=== PATIENT | female | born 1955 | race Caucasian/White ===

== ENCOUNTER 2020-11-05 07:33 | Outpatient (REF) | payer OTHER, SELFPAY ==
[2020-11-05 11:45] LABS: Hematocrit 38.4 % (37-47); Hemoglobin 12.7 g/dl (12.0-16.0); Mean Corpuscular HGB Conc 33.1 g/dl (31.0-35.0); Mean Corpuscular Hemoglobin 29.8 pg (27.0-33.0); Mean Corpuscular Volume 90.1 fL (80-98); Mean Platelet Volume 10.4 fL (9.4-12.3); Platelet Count 326 X10*3/uL (160-400); Red Blood Count 4.26 X10*6/uL (4.20-5.50); White Blood Count 6.4 X10*3/uL (4.8-10.8)
[2020-11-05 12:02] LABS: Alanine Aminotransferase 16 U/L (0-31); Albumin Level 4.1 g/dL (3.5-5.0); Alkaline Phosphatase 75 U/L (39-117); Anion Gap 14 (12-20); Aspartate Amino Transferase 17 U/L (5-31); Blood Urea Nitrogen 17 mg/dL (9-16); Calcium 9.4 mg/dL (8.4-10.2); Carbon Dioxide 24 mmol/L (22-29); Chloride 108 mmol/L (96-108); Cholesterol 152 mg/dL; Estimated Glomerular Filt Rate 43; Glucose Fasting 102 mg/dL (60-99); HDL Cholesterol 37 mg/dL; LDL Cholesterol Calculated 85 mg/dl; Potassium 4.5 mmol/L (3.3-5.1); Sodium 141 mmol/L (135-145); Total Protein 6.8 g/dL (6.5-8.0); Triglycerides 151 mg/dL
[2020-11-05 12:23] LABS: Vitamin D 25-OH Total 44.1 ng/mL (>30)
== END 2020-11-05 07:34 | disposition home or self-care (01) ==
LOC: HO.MANLDS 07:33
PROVIDERS: PCP Internal Medicine; Visit Provider Physician Assistant
DX: E55.9 Vitamin D deficiency, unspecified (principal); I10 Essential (primary) hypertension; E78.1 Pure hyperglyceridemia
CPT/HCPCS: 36415; 80053; 80061; 82306; 85027

== ENCOUNTER 2021-11-10 07:59 | Outpatient (REF) | payer MEDICARE, OTHER, SELFPAY ==
[2021-11-10 11:39] LABS: Hematocrit 39.6 % (37.0-47.0); Hemoglobin 12.9 g/dl (12.0-16.0); Mean Corpuscular HGB Conc 32.6 g/dl (31.0-35.0); Mean Corpuscular Hemoglobin 29.5 pg (27.0-33.0); Mean Corpuscular Volume 90.4 fL (80.0-98.0); Mean Platelet Volume 10.2 fL (9.4-12.3); Platelet Count 322 X10*3/uL (160-400); Red Blood Count 4.38 X10*6/uL (4.20-5.50); Red Cell Distribution Width 11.8 % (11.0-16.0)
[2021-11-10 11:55] LABS: Alanine Aminotransferase 17 U/L (0-31); Albumin Level 4.1 g/dL (3.5-5.0); Alkaline Phosphatase 80 U/L (39-117); Anion Gap 17 (12-20); Aspartate Amino Transferase 15 U/L (5-31); Bilirubin Total 0.8 mg/dL (0.0-1.0); Blood Urea Nitrogen 22 mg/dL (9-16); Calcium 9.1 mg/dL (8.4-10.2); Carbon Dioxide 22 mmol/L (22-29); Chloride 107 mmol/L (96-108); Cholesterol 182 mg/dL; Estimated Glomerular Filt Rate 42; Glucose Fasting 99 mg/dL (60-99); HDL Cholesterol 39 mg/dL; LDL Cholesterol Calculated 105 mg/dl; Potassium 4.5 mmol/L (3.3-5.1); Sodium 141 mmol/L (135-145); Total Protein 6.9 g/dL (6.5-8.0); Triglycerides 191 mg/dL
== END 2021-11-10 08:00 | disposition home or self-care (01) ==
LOC: HO.MANLDS 07:59
PROVIDERS: Visit Provider Physician Assistant
DX: Z00.00 Encounter for general adult medical examination without abnormal findings (principal)
CPT/HCPCS: 36415; 80053; 80061; 85027

== ENCOUNTER 2022-12-08 08:43 | Outpatient (REF) | payer MEDICARE, OTHER, SELFPAY ==
[2022-12-08 13:26] LABS: MANUAL DIFF FLAG NO
[2022-12-08 13:42] LABS: Basophils Absolute Auto 0.1 X10*3/uL (0.0-0.2); Basophils Percent Auto 0.7 % (0-2); Eosinophils Absolute Auto 0.2 X10*3/uL (0.0-0.4); Eosinophils Percent Auto 3.2 % (0-4); Hematocrit 42.1 % (37.0-47.0); Hemoglobin 13.6 g/dl (12.0-16.0); Imm Gran Abs Auto 0.03 X10*3/uL (0.00-0.03); Imm Gran Pct Auto 0.4 % (0.0-0.4); Lymphocytes Absolute Auto 1.6 X10*3/uL (1.2-4.9); Lymphocytes Percent Auto 22.4 % (20-40); Mean Corpuscular HGB Conc 32.3 g/dl (31.0-35.0); Mean Corpuscular Hemoglobin 29.6 pg (27.0-33.0); Mean Corpuscular Volume 91.5 fL (80.0-98.0); Mean Platelet Volume 10.4 fL (9.4-12.3); Monocytes Absolute Auto 0.6 X10*3/uL (0.1-1.2); Monocytes Percent Auto 7.8 % (2-11); Neutrophils Absolute Auto 4.7 x10*3/uL (2.0-8.3); Neutrophils Percent Auto 65.5 % (45-73); Platelet Count 311 X10*3/uL (160-400); Red Cell Distribution Width 11.7 % (11.0-16.0); White Blood Count 7.2 X10*3/uL (4.8-10.8)
[2022-12-08 14:16] LABS: Alanine Aminotransferase 19 U/L (0-31); Albumin Level 4.2 g/dL (3.5-5.0); Alkaline Phosphatase 67 U/L (39-117); Anion Gap 12 (12-20); Aspartate Amino Transferase 16 U/L (5-31); Bilirubin Total 0.9 mg/dL (0.0-1.0); Blood Urea Nitrogen 22 mg/dL (9-16); Calcium 9.7 mg/dL (8.4-10.2); Carbon Dioxide 24 mmol/L (22-29); Chloride 108 mmol/L (96-108); Cholesterol 171 mg/dL (<200); Estimated Glomerular Filt Rate 51; Glucose Random 86 mg/dL (60-115); HDL Cholesterol 43 mg/dL (>40); LDL Cholesterol Calculated 96 mg/dL (<100); Potassium 4.3 mmol/L (3.3-5.1); Sodium 140 mmol/L (135-145); Triglycerides 160 mg/dL (<150)
== END 2022-12-08 08:44 | disposition home or self-care (01) ==
LOC: HO.MANLDS 08:43
PROVIDERS: Visit Provider Physician Assistant
DX: E78.1 Pure hyperglyceridemia (principal)
CPT/HCPCS: 36415; 80053; 80061; 85025

== ENCOUNTER 2024-11-27 09:44 | Outpatient (AMB) | payer MEDICARE, OTHER, SELFPAY ==
--- OUTSIDE RECORDS SUMMARY | 2024-11-27 10:50 | XMS_ITS | Encounter Summary ---
Author Organization [facility] Address [address] [facility] [address] [place] [address] Phone Care Team Providers Care Audio/Video Technician Name Role Phone Gilbert Reynoso DO Primary Care Provider [phone] Gilbert Reynoso DO Unavailable Gilbert Reynoso DO Unavailable Jesus Alberto Reyes MD Unavailable Encounter Details Date Type Department Care Team (Late st Contact Info) Description 01/06/2021 Procedure Pass [address] [address] Social History Tobacco Use Types Packs/Day Years Used Date Smoking Tobacco: Never Assessed Comments No Sex and Gender Information Value Date Recorded Sex Assigned at Female 08/20/2021 9:53 PM EDT Legal Sex Female 9:54 PM EDT Gender Identity Female 08/20/2021 9:53 PM EDT Sexual Orientation Lesbian or Rodriguez 08/20/2021 9: 53 PM EDT documented as of this encounter Plan of Treatment Not on file documented as of this encounter Visit Diagnoses Not on filedocumented in this encounter Care Teams Audio/Video Technician Relationship Specialty Start Date End Date Gilbert Reynoso DO PCP - General 01/25/17 Gilbert Reynoso DO [address] [place] [address] [place] [address] Insurance Assigned Provider 08/15/1903/11 Gilbert Reynoso DO [address] [facility] [place] [address] Insurance Assigned Provider 05/17/2102/09 Jesus Alberto Reyes MD 15 [facility] [address] [place] [address] [email or web address] Nephrology 05/02/24 documented as of this encounter Additional Source Comments The information contained in this document represents components of the legal health record. It is not the complete legal health record.[facility]
--- OUTSIDE RECORDS SUMMARY | 2024-11-27 10:50 | XMS_ITS | Encounter Summary ---
Author Organization [facility], Address [address] [place] [address] Phone Care Team Providers Care Home Based Assistant Name Role Phone Gilbert Reynoso DO Primary Care Provider [phone] Encounter Details Date Type Department Care Team (Late Contact Info) Description 01/04/2020 Orders Only [facility] [address] [facility] 3 [place] [address] Melissa Keller MD Chronic kidney disease stage 3 (HCC) Social History Tobacco Use Types Packs/Day Years Used Date Smoking Tobacco: Never Assessed Comments Unknown Sex and Gender Information Value Date Recorded Sex Assigned at Not on file Legal Sex Female 4:39 PM EST Gender Identity Not on file Sexual Orientation Not on file Occupation Industry Job Start Date Job End Date Retired Nurse Not on file Not on file Not on file documented as of this encounter Plan of Treatment Upcoming Encounters Date Type Department Care Team (Late Contact Info) Description 06/27/2025 10:00 AM EDT Office Visit [facility] - [address] [place] [address] Jesus Alberto Reyes MD [address] [facility] [place] [phone] documented as of this encounter Visit Diagnoses Diagnosis Chronic kidney disease stage 3 (HCC) documented in this encounter Care Teams Home Based Assistant Relationship Specialty Start Date End Date Gilbert Reynoso DO [address] [address] PCP - General Internal Medicine 06/13/19 documented as of this encounter
== END 2024-11-27 10:46 | disposition home or self-care (01) ==
LOC: HO.HMGAL 09:44
PROVIDERS: PCP Internal Medicine; Visit Provider Registered Nurse Emergency
DX: J30.89 Other allergic rhinitis (principal)
CPT/HCPCS: 95117; 95165

== ENCOUNTER 2024-12-24 11:00 | Outpatient (AMB) | payer MEDICARE, OTHER, SELFPAY | END 2024-12-24 11:22 | disposition home or self-care (01) | LOC: HO.HMGAL 11:00 | PROVIDERS: PCP Internal Medicine; Visit Provider Registered Nurse Emergency | DX: J30.89 Other allergic rhinitis (principal) | CPT/HCPCS: 95117; 95165 ==

== ENCOUNTER 2025-01-23 10:12 | Outpatient (AMB) | payer MEDICARE, OTHER, SELFPAY ==
--- OUTSIDE RECORDS SUMMARY | 2025-01-23 12:03 | XMS_ITS | Encounter Summary ---
Author Organization [facility] Address [address] [facility] [address] [place] [address] Phone Care Team Providers Care Safety Compliance Specialist Name Role Phone Gilbert Reynoso DO Primary Care Provider [phone] Gilbert Reynoso DO Unavailable Gilbert Reynoso DO Unavailable Jesus Alberto Reyes MD Unavailable Encounter Details Date Type Department Care Team (Late st Contact Info) Description 01/16/2020 Procedure Pass [address] [address] Social History Tobacco Use Types Packs/Day Years [...] on filedocumented in this encounter Care Teams Safety Compliance Specialist Relationship Specialty Start Date End Date Gilbert Reynoso DO PCP - General 01/25/17 Gilbert Reynoso DO [address] [place] [address] [place] [address] Insurance Assigned Provider 08/15/1903/11 Gilbert Reynoso DO 179 [facility] [address] Insurance Assigned Provider 05/17/2102/09 Jesus Alberto Reyes MD [address] [address] [email or web address] Nephrology 05/02/24 documented as of this encounter Additional Source Comments The information contained in this document represents components of the legal health record. It is not the complete legal health record.[facility]
--- OUTSIDE RECORDS SUMMARY | 2025-01-23 12:03 | XMS_ITS | Encounter Summary ---
Author Organization [facility] Address [address] [facility] [address] [place] [address] Phone Care Team Providers Care Vp Legal Affairs Name Role Phone Angeles, Gilbert Meade DO Primary Care Provider [phone] Bigda, Gilbert A DO Unavailable Bigda, Gilbert A DO Unavailable Jesus Alberto Reyes MD Unavailable Encounter Details Date Type Department Care Team (Latest Contact Info) Description 05/22/2019 Transcribe Orders Virtual Department 30 [place] [address] Rosemarie Oneil PA-C [address] [place] [place] [address] Abnormal results of kidney function studies (Primary Dx) Social History Tobacco Use Types Packs/Day Years [...] on file documented as of this encounter Results * US Kidneys (06/07/2019 9:09 AM EST) Anatomical Region Laterality Modality Abdomen, Kidney Ultrasound 06/07/2019 12:5 8 PM EST Impressions 06/07/2019 1:00 PM EST Normal renal ultrasound. POS - [id number] Narrative 06/07/2019 1:00 PM EST EXAM: US KIDNEYS HISTORY: Abnormal renal laboratory values. TECHNIQUE: Grayscale and color Doppler ultrasound imaging of the kidneys. COMPARISON: None. FINDINGS: RIGHT KIDNEY: Normal renal size. Measures 10.0 x 4.6 cm. Cortical echogenicity is normal. Normal cortical thickness. No hydronephrosis. No shadowing calculi. LEFT KIDNEY: Normal renal size. Measures 10.7 x 4.2 cm. Cortical echogenicity is normal. Normal cortical thickness. No hydronephrosis. No shadowing calculi. Procedure Note Lillian Pereira MD - 06/07/2019 EXAM: US KIDNEYS HISTORY: Abnormal renal laboratory values. TECHNIQUE: Grayscale and color Doppler ultrasound imaging of thekidneys. COMPARISON: None. FINDINGS: RIGHT KIDNEY: Normal renal size. Measures 10.0 x 4.6 cm. Corticalechogenicity is normal. Normal cortical thickness. No hydronephrosis. Noshadowing calculi. LEFT KIDNEY: Normal renal size. Measures 10.7 x 4.2 cm. Corticalechogenicity is normal. Normal cortical thickness. No hydronephrosis. Noshadowing calculi. IMPRESSION: Normal renal ultrasound. POS - [id number] July Clarice SARGENT IM US RENAL Final Result documented in this encounter Visit Diagnoses Diagnosis Abnormal results of kidney function studies- Primary Nonspecific abnormal results of kidney function study Abnormal results of kidney function studies Nonspecific abnormal results of kidney function study documented in this encounter Care Teams Vp Legal Affairs Relationship Specialty Start Date End Date Gilbert Reynoso DO PCP - General 01/25/17 Gilbert Reynoso DO [address] [place] [address] Insurance Assigned Provider 08/15/1903/11 Gilbert Reynoso DO 179 [facility] [place] [address] Insurance Assigned Provider 05/17/2102/09 Jesus Alberto Reyes MD [address] [address] [email or web address] Nephrology 05/02/24 documented as of this encounter Additional Source Comments The information contained in this document represents components of the legal health record. It is not the complete legal health record.[facility]
--- OUTSIDE RECORDS SUMMARY | 2025-01-23 12:03 | XMS_ITS | Encounter Summary ---
Author Organization [facility] Address [address] [facility] [address] [place] [address] Phone Care Team Providers Care Cdl Company Flatbed Driver Name Role Phone Gilbert Reynoso DO Primary Care Provider [phone] Gilbert Reynoso DO Unavailable Gilbert Reynoso DO Unavailable Jesus Alberto Reyes MD Unavailable Encounter Details Date Type Department Care Team (Late st Contact Info) Description 01/16/2020 Ancillary Orders Virtual Department 30 [place] [address] Gilbert Reynoso DO 179 [facility] [place] [address] Breast screening Social History Tobacco Use Types Packs/Day Years [...] documented as of this encounter Results * BI MAMMOGRAM SCREENING WITH TOMOSYNTHESIS WITH CAD (BILATERAL) (03/18/2020 8:20 AM EST) Anatomical Region Laterality Modality Breast Left, Breast Right, Breast Bilateral Bila teral Mammography 03/18/2020 9:03 AM EST Impressions 03/18/2020 9:07 AM EST No mammographic signs of malignancy. Annual screening is recommended. BI-RADS CATEGORY: 2 - Benign finding. DENSITY: The breast tissue is heterogeneously dense, which could obscure a lesion on mammography. Narrative 03/18/2020 9:07 AM EST Bilateral mammography is performed in conjunction with computed aided detection. 3-D tomography along with 2-D C view imaging was also performed. Comparison made to previous dated as far back as 02/19/2014 and as recent as 03/07/2019. No suspicious masses, areas of architectural distortion or suspicious microcalcifications. 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 Procedure Note Otoniel Fajardo MD - 03/18/2020 Bilateral mammography is performed in conjunction with computed aideddetection. 3-D tomography along with 2-D C view imaging was alsoperformed. Comparison made to previous dated as far back as 02/19/2014 andas recent as 03/07/2019. No suspicious masses, areas of architectural distortion or suspiciousmicrocalcifications. Stable coarse calcification with benigncharacteristics in the posterior upper outer right breast, probably adegenerating fibroadenoma. IMPRESSION: No mammographic signs of malignancy. Annual screening is recommended. BI-RADS CATEGORY: 2 - Benign finding. DENSITY: The breast tissue is heterogeneously dense, which could obscurea lesion on mammography. Gilbert Reynoso DO IMG MG EXAMS Final Result documented in this encounter Visit Diagnoses Diagnosis Breast screening Breast screening, unspecified Breast screening Breast screening, unspecified documented in this encounter Care Teams Cdl Company Flatbed Driver Relationship Specialty Start Date End Date Gilbert Reynoso DO PCP - General 01/25/17 Gilbert Reynoso DO [address] [place] [address] Insurance Assigned Provider 08/15/1903/11 Gilbert Reynoso DO [address] [facility] [address] [place] [address] Insurance Assigned Provider 05/17/2102/09 Jesus Alberto Reyes MD 15 [facility] 303 [place] [address] [email or web address] Nephrology 05/02/24 documented as of this encounter Additional Source Comments The information contained in this document represents components of the legal health record. It is not the complete legal health record.[facility]
--- OUTSIDE RECORDS SUMMARY | 2025-01-23 12:03 | XMS_ITS | Encounter Summary ---
Author Organization [facility] Address [address] [facility] [address] [place] [address] Phone Care Team Providers Care First Helper Name Role Phone Gilbert Reynoso DO Primary Care Provider [phone] Gilbert Reynoso DO Unavailable Jesus Alberto Reyes MD Unavailable Encounter Details Date Type Department Care Team (Late st Contact Info) Description 01/28/2022 Procedure Pass [facility], [address] [address] Social History Tobacco Use Types Packs/Day Years Used Date Smoking Tobacco: Never Alcohol Use Standard Drinks/Week Comments Not Currently 0 (1 standard drink = 0.6 oz pur e alcohol) Comments No Sex and Gender Information Value [...] on filedocumented in this encounter Care Teams First Helper Relationship Specialty Start Date End Date Gilbert Reynoso DO PCP - General 01/25/17 Gilbert Reynoso DO [address] [place] [address] [place] [address] [email or web address] Insurance Assigned Provider 05/17/2102/09 Jesus Alberto Reyes MD [address] [address] [email or web address] Nephrology 05/02/24 documented as of this encounter Additional Source Comments The information contained in this document represents components of the legal health record. It is not the complete legal health record.[facility]
--- OUTSIDE RECORDS SUMMARY | 2025-01-23 12:03 | XMS_ITS | Encounter Summary ---
Author Organization [facility] Address [address] [facility] [address] [place] [address] Phone Care Team Providers Care Legal Librarian Name Role Phone Gilbert Reynoso DO Primary Care Provider [phone] Gilbert Reynoso DO Unavailable Jesus Alberto Reyes MD Unavailable Encounter Details Date Type Department Care Team (Late st Contact Info) Description 12/30/2022 Procedure Pass [facility], [facility] 30 [place] [address] Social History Tobacco Use Types Packs/Day Years Used Date Smoking Tobacco: Never Alcohol Use Standard Drinks/Week Comments Not Currently 0 (1 standard drink = 0.6 oz pur e alcohol) Education Answer Date Recorded Are you interested in more education? Not on ezekiel e 08/05/2022 Are you concerned about learning? Not on file 08/05/2022 No 08/05/2022 No 08/05/2022 Digital Access Answer Date Recorded No 09/04/2022 No 09/04/2022 Reliable internet access at home? Not on file 09/04/2022 Device with a working camera? Not on file Comments No Sex and Gender Information Value [...] on filedocumented in this encounter Care Teams Legal Librarian Relationship Specialty Start Date End Date Gilbert Reynoso DO [email or web address] PCP - General 01/25/17 Gilbert Reynoso DO [address] [place] [address] [email or web address] Insurance Assigned Provider 05/17/2102/09 Jesus Alberto Reyes MD 15 [facility] 303 [place] [address] [email or web address] Nephrology 05/02/24 documented as of this encounter Additional Source Comments The information contained in this document represents components of the legal health record. It is not the complete legal health record.[facility]
--- OUTSIDE RECORDS SUMMARY | 2025-01-23 12:03 | XMS_ITS | Encounter Summary ---
Author Organization [facility] Address [address] [facility] [address] [place] [address] Phone Care Team Providers Care Emergency Dispatcher Name Role Phone Gilbert Reynoso DO Primary Care Provider [phone] Gilbert Reynoso DO Unavailable Jesus Alberto Reyes MD Unavailable Encounter Details Date Type Department Care Team (Late st Contact Info) Description 01/28/2022 Transcribe Orders Virtual Department [address] [place] [address] Gilbert Reynoso DO 179 [facility] [address] [place] [address] [email or web address] Breast screening (Primary Dx) Social History Tobacco Use Types [...] MAMMOGRAM SCREENING WITH TOMOSYNTHESIS WITH CAD (BILATERAL) (03/24/2022 8:34 AM EST) Anatomical Region Laterality Modality Breast Left, Breast Right, Breast Bilateral Bila teral Mammography 03/26/2022 4:49 PM EST Impressions 03/26/2022 4:52 PM EST BILATERAL BREASTS: Benign, no evidence of malignancy. Recommend bilateral annual screening mammography in 12 months. Bi-RADS: BI-RADS CATEGORY: 2 - Benign finding. DENSITY: The breast tissue is heterogeneously dense, which could obscure a lesion on mammography. RIGHT RECOMMENDATION DUE DATE: 12 Months Recommendation: Right Mammography Screening LEFT RECOMMENDATION DUE DATE: 12 Months Recommendation: Left Mammography Screening Narrative 03/26/2022 4:52 PM EST STUDY: Bilateral screening mammography with tomosynthesis and CAD TECHNIQUE: Bilateral full-field digital screening mammography is obtained and read in conjunction with computer-aided detection. Tomosynthesis as well as 2-D C view imaging were obtained. COMPARISON: Comparison made to multiple prior studies dating back to February 2015. BREAST COMPOSITION: The breast tissue is heterogeneously dense, which may obscure small masses. BILATERAL BREASTS: No new masses, suspicious calcifications or other abnormalities are seen. No significant interval change. Gilbert Reynoso DO IMG MG EXAMS Final Result documented in this encounter Visit Diagnoses Diagnosis Breast screening- Primary Breast screening, unspecified Breast screening Breast screening, unspecified documented in this encounter Care Teams Emergency Dispatcher Relationship Specialty Start Date End Date Gilbert Reynoso DO [email or web address] PCP - General 01/25/17 Gilbert Reynoso DO 179 [place] [address] [email or web address] Insurance Assigned Provider 05/17/2102/09 Jesus Alberto Reyes MD [address] [address] [email or web address] Nephrology 05/02/24 documented as of this encounter Additional Source Comments The information contained in this document represents components of the legal health record. It is not the complete legal health record.[facility]
--- OUTSIDE RECORDS SUMMARY | 2025-01-23 12:03 | XMS_ITS | Encounter Summary ---
Author Organization [facility] Address [address] [facility] [address] [place] [address] Phone Care Team Providers Care Contract Clerk Name Role Phone Gilbert Reynoso DO Primary Care Provider [phone] Jesus Alberto Reyes MD Unavailable Encounter Details Date Type Department Care Team (Late st Contact Info) Description 05/08/2024 Procedure Pass [facility] Admitting Dept Virtual Department 30 [place] [address] Social History Tobacco Use Types Packs/Day Years Used Date Smoking Tobacco: Never Smokeless Tobacco: Never Alcohol Use Standard Drinks/Week Comments Not Currently 0 (1 standard drink = 0.6 oz pur e alcohol) 3 weekly Education Answer Date Recorded Are you interested in more education? Not on ezekiel e 08/05/2022 Are you concerned about learning? Not on file 08/05/2022 No 08/05/2022 No 08/05/2022 Digital Access Answer Date Recorded No 09/04/2022 No 09/04/2022 Reliable internet access at home? Not on file 09/04/2022 Device with a working camera? Not on file Intimate Partner Violence Answer Date R ecorded Are you denied basic needs s uch as food, clothing, or medical care? No 05/08/2024 In the past 12 months have y ou been in a relationship with a person who hurts, threatens, or tries to control you? No 05/08/2024 Are you denied basic needs s uch as food, clothing, or medical care? No 05/08/2024 In the past 12 months have y ou been in a relationship with a person who hurts, threatens, or tries to control you? No 05/08/2024 Comments No Sex and Gender Information Value [...] on filedocumented in this encounter Care Teams Contract Clerk Relationship Specialty Start Date End Date Gilbert Reynoso DO [email or web address] PCP - General 01/25/17 Jesus Alberto Reyes MD [address] [address] Nephrology 05/02/24 documented as of this encounter Additional Source Comments The information contained in this document represents components of the legal health record. It is not the complete legal health record.[facility]
--- OUTSIDE RECORDS SUMMARY | 2025-01-23 12:03 | XMS_ITS | Encounter Summary ---
Author Organization [facility] Address [address] [facility] [address] [place] [address] Phone Care Team Providers Care Skin Diving Teacher Name Role Phone Gilbert Reynoso DO Primary Care Provider [phone] Gilbert Reynoso DO Unavailable Gilbert Reynoso DO Unavailable Jesus Alberto Reyes MD Unavailable Encounter Details Date Type Department Care Team (Late st Contact Info) Description 01/06/2021 Procedure Pass [address] [address] Social History Tobacco Use Types Packs/Day Years [...] on filedocumented in this encounter Care Teams Skin Diving Teacher Relationship Specialty Start Date End Date Gilbert Reynoso DO PCP - General 01/25/17 Gilbert Reynoso DO [address] [place] [address] [place] [address] Insurance Assigned Provider 08/15/1903/11 Gilbert Reynoso DO 179 [place] [address] Insurance Assigned Provider 05/17/2102/09 Jesus Alberto Reyes MD 15 [facility] 303 [place] [address] [email or web address] Nephrology 05/02/24 documented as of this encounter Additional Source Comments The information contained in this document represents components of the legal health record. It is not the complete legal health record.[facility]
--- OUTSIDE RECORDS SUMMARY | 2025-01-23 12:05 | XMS_ITS | Encounter Summary ---
Author Organization [facility] Address [address] [place] [address] Phone Care Team Providers Care Sales Stock Associate Name Role Phone Gilbert Reynoso DO Primary Care Provider [phone] Encounter Details Date Type Department Care Team (Late Contact Info) Description 07/04/2020 Orders Only [facility] [address] [facility] 3 [place] [address] Melissa Keller MD Chronic kidney disease stage 3 Social History Tobacco Use Types Packs/Day Years [...] Visit [facility] [address] [place] [address] Jesus Alberto Reyes MD [address] [place] [address] [place] [phone] documented as of this encounter Visit Diagnoses Diagnosis Chronic kidney disease stage 3 (HCC) documented in this encounter Care Teams Sales Stock Associate Relationship Specialty Start Date End Date Gilbert Reynoso DO [address] [place] [address],[place] [address] PCP - General Internal Medicine 06/13/19 documented as of this encounter
--- OUTSIDE RECORDS SUMMARY | 2025-01-23 12:05 | XMS_ITS | Encounter Summary ---
Author Organization [facility] Address [address] [facility] [address] [place] [address] Phone Care Team Providers Care Factory Maintenance Manager Name Role Phone Gilbert Reynoso DO Primary Care Provider [phone] Gilbert Reynoso DO Unavailable Gilbert Reynoso DO Unavailable Jesus Alberto Reyes MD Unavailable Encounter Details Date Type Department Care Team (Late st Contact Info) Description 12/08/2017 Ancillary Orders Virtual Department [address] [place] [address] Gilbert Reynoso DO [address] [facility] [place] [address] Breast screening Social History Tobacco Use Types [...] MAMMOGRAM SCREENING WITH TOMOSYNTHESIS WITH CAD (BILATERAL) (03/06/2018 8:42 AM EST) Anatomical Region Laterality Modality Breast Left, Breast Right, Breast Bilateral Bila teral Mammography 03/06/2018 2:20 PM EST Impressions 03/06/2018 2:23 PM EST Stable appearance relative to prior imaging. No findings suggestive of malignancy are seen. BI-RADS CATEGORY: 2 - Benign finding. DENSITY: The breast tissue is heterogeneously dense, an appearance which lowers the sensitivity of mammography. POS - [id number] Narrative 03/06/2018 2:23 PM EST Full-field digital mammography is obtained with computer-aided detection. Comparison with prior imaging from February 23, 2017 is made with older imaging dating back as far as February 08, 2012 also reviewed. There is heterogeneous fibroglandular density evident in the breasts. In addition to 2-D C view imaging, tomosynthesis images are obtained in two projections of each breast. There are macrocalcifications in the right breast.. No dominant soft tissue mass of concern, suspicious cluster of calcifications, significant interval skin changes, or architectural distortion is identified. Procedure Note Pardeep Alvarez MD - 03/06/2018 Full-field digital mammography is obtained with computer-aided detection.Comparison with prior imaging from February 23, 2017 is made with olderimaging dating back as far as February 08, 2012 also reviewed. There is heterogeneous fibroglandular density evident in the breasts. Inaddition to 2-D C view imaging, tomosynthesis images are obtained in twoprojections of each breast. There are macrocalcifications in the right breast.. No dominant softtissue mass of concern, suspicious cluster of calcifications, significantinterval skin changes, or architectural distortion is identified. IMPRESSION: Stable appearance relative to prior imaging. No findings suggestive ofmalignancy are seen. BI-RADS CATEGORY: 2 - Benign finding. DENSITY: The breast tissue is heterogeneously dense, an appearance whichlowers the sensitivity of mammography. POS - [id number] us Gilbert Reynoso DO IMG MG EXAMS Final Result documented in this encounter Visit Diagnoses Diagnosis Breast screening Breast screening, unspecified Breast screening Breast screening, unspecified documented in this encounter Care Teams Factory Maintenance Manager Relationship Specialty Start Date End Date Gilbert Reynoso DO PCP - General 01/25/17 Gilbert ReynosoDO [address] [place] [address] Insurance Assigned Provider 08/15/1903/11 Denisenell Gilbert MeadeDO [address] [place] [address] Insurance Assigned Provider 05/17/2102/09 Jesus Alberto Reyes MD [address] [address] Nephrology 05/02/24 documented as of this encounter Additional Source Comments The information contained in this document represents components of the legal health record. It is not the complete legal health record.[facility]
--- OUTSIDE RECORDS SUMMARY | 2025-01-23 12:05 | XMS_ITS | Encounter Summary ---
Author Organization [facility] Address [address] [facility] [address] [place] [address] Phone Care Team Providers Care Geothermal Field Technician Name Role Phone Gilbert Reynoso DO Primary Care Provider [phone] Gilbert Reynoso DO Unavailable Gilbert Reynoso DO Unavailable Jesus Alberto Reyes MD Unavailable Encounter Details Date Type Department Care Team (Late st Contact Info) Description 01/29/2017 Ancillary Orders [facility], [facility] [address] [place] [address] Gilbert Reynoso DO [address] [facility] [place] [address] [place] [address] [email or web address] Visit for screening mammogram Social History Tobacco Use Types Packs/Day Years [...] MAMMOGRAM SCREENING WITH TOMOSYNTHESIS WITH CAD (BILATERAL) (02/23/2017 9:52 AM EST) Anatomical Region Laterality Modality Breast Left, Breast Right, Breast Bilateral Bila teral Mammography 02/23/2017 5:02 PM EST Impressions 02/23/2017 5:09 PM EST No mammographic signs of malignancy. Annual screening is recommended. BI-RADS CATEGORY: 1 - Negative. DENSITY: The breast tissue is heterogeneously dense, an appearance which lowers the sensitivity of mammography. POS - [id number] Narrative 02/23/2017 5:09 PM EST Bilateral mammography is performed in conjunction with computed aided detection. 3-D tomography along with 2-D C view imaging was also performed. Comparison made to previous dated as far back as 02/02/2011 and is recent as 02/23/2016. Breasts are composed of heterogeneously dense fibroglandular tissue somewhat limiting the sensitivity of mammography. No suspicious masses, areas of architectural distortion or microcalcifications. Procedure Note Otoniel De Luna MD - 02/23/2017 Bilateral mammography is performed in conjunction with computed aideddetection. 3-D tomography along with 2-D C view imaging was alsoperformed. Comparison made to previous dated as far back as 02/02/2011 andis recent as 02/23/2016. Breasts are composed of heterogeneously dense fibroglandular tissuesomewhat limiting the sensitivity of mammography. No suspicious masses, areas of architectural distortion ormicrocalcifications. IMPRESSION: No mammographic signs of malignancy. Annual screening is recommended. BI-RADS CATEGORY: 1 - Negative. DENSITY: The breast tissue is heterogeneously dense, an appearance whichlowers the sensitivity of mammography. POS - [id number] Gilbert Reynoso DO IMG MG EXAMS Final Result documented in this encounter Visit Diagnoses Diagnosis Visit for screening mammogram Visit for screening mammogram documented in this encounter Care Teams Geothermal Field Technician Relationship Specialty Start Date End Date Gilbert Reynoso DO PCP - General 01/25/17 Gilbert Reynoso DO [address] [facility] [place] [address] Insurance Assigned Provider 08/15/1903/11 Gilbert Reynoso DO [address] [place] [address] Insurance Assigned Provider 05/17/2102/09 Jesus Alberto Reyes MD [address] [address] [email or web address] Nephrology 05/02/24 documented as of this encounter Additional Source Comments The information contained in this document represents components of the legal health record. It is not the complete legal health record.[facility]
--- OUTSIDE RECORDS SUMMARY | 2025-01-23 12:05 | XMS_ITS | Encounter Summary ---
Author Organization [facility], Address [address] [place] [address] Phone Care Team Providers Care Rounding And Backing Machine Operator Name Role Phone Gilbert Reynoso DO Primary Care Provider [phone] Encounter Details Date Type Department Care Team (Late st Contact Info) Description 06/21/2022 Documentation Only [facility] [address] [place] [address] Melissa Keller MD Social History Tobacco Use Types Packs/Day Years [...] Encounters Date Type Department Care Team (Late st Contact Info) Description 06/27/2025 10:00 AM EDT Office Visit [facility] [address] [place] [phone] Jesus Alberto Reyes MD [address] [place] [address] [place] [phone] documented as of this encounter Visit Diagnoses Not on filedocumented in this encounter Care Teams Rounding And Backing Machine Operator Relationship Specialty Start Date End Date Gilbert Reynoso DO [address] [facility] [place] [address] PCP - General Internal Medicine 06/13/19 documented as of this encounter
--- OUTSIDE RECORDS SUMMARY | 2025-01-23 12:05 | XMS_ITS | Encounter Summary ---
Author Organization [facility] Address [address] [facility] [address] [place] [address] Phone Care Team Providers Care Light Cleaner Name Role Phone Gilbert Reynoso DO Primary Care Provider [phone] Gilbert Reynoso DO Unavailable Gilbert Reynoso DO Unavailable Jesus Alberto Reyes MD Unavailable Reason for Referral * Physical Therapy (Routine) - Closed Specialty Diagnoses / Procedures Referred By Helena perales Referred To Contact Physical Therapy Diagnoses Encounter for rehabilitation Rosemarie Oneil PA-C Phone: tel: fax: [facility] [address] [place] [address] Phone: tel: Referral ID Status Reason Start Date Expiration Date Visits Re quested Visits Authorized [id number] Closed 10/19/2018 10/09/2019 17 17 Encounter Details Date Type Department Care Team (Late st Contact Info) Description 10/03/2018 Transcribe Orders [facility] [address] [place] [id number] Gilbert Reynoso DO [address] [place] [address] Encounter for rehabilitation (Primary Dx) Social History Tobacco Use Types Packs/Day Years Used Date Smoking Tobacco: Never Assessed Comments No Sex and Gender Information Value Date Recorded Sex Assigned at Female 08/20/2021 9:53 PM EDT Legal Sex Female 9:54 PM EDT Gender Identity Female 08/20/2021 9:53 PM EDT Sexual Orientation Lesbian or Rodriguez 08/20/2021 9: 53 PM EDT documented as of this encounter Plan of Treatment Scheduled Referrals Name Type Priority Associated Diagnoses Orde r Schedule Ambulatory referral to [facility] Physical Therapy Outpatient Referral Routine Encounter for rehabilitation Ordered: 10/03/2018 documented as of this encounter Visit Diagnoses Diagnosis Encounter for rehabilitation- Primary documented in this encounter Care Teams Light Cleaner Relationship Specialty Start Date End Date Gilbert Reynoso DO PCP - General 01/25/17 Gilbert Reynoso DO [address] [place] [address] Insurance Assigned Provider 08/15/1903/11 Gilbert Reynoso DO [address] [place] [address] Insurance Assigned Provider 05/17/2102/09 Jesus Alberto Reyes MD [address] [address] Nephrology 05/02/24 documented as of this encounter Additional Source Comments The information contained in this document represents components of the legal health record. It is not the complete legal health record.[facility]
--- OUTSIDE RECORDS SUMMARY | 2025-01-23 12:05 | XMS_ITS | Clinical Summary ---
Author Organization [facility], Address [address] [place] [address] Phone Care Team Providers Care Operator Electronic Warfare Name Role Phone Gilbert Reynoso DO Primary Care Provider [phone] Allergies Active Allergy Reactions Criticality Noted Date Comments Atenolol 06/29/2021 Lisinopril 06/29/2021 Other 06/29/2021 monthly allergy shots Statins Other (see comments) 06/22/2019 Sulfa Antibiotics 06/22/2019 Medications losartan (COZAAR) 50 MG tablet Take 50 mg by mouth twice a day Active LORazepam (ATIVAN) 0.5 MG tablet lorazepam 0.5 mg tablet Active famotidine (PEPCID) 40 MG tablet Take 40 mg by mouth at bed time Active amLODIPine (NORVASC) 5 MG tablet Take 5 mg by mouth daily Active Psyllium (METAMUCIL FIBER PO) Metamucil Active rosuvastatin (CRESTOR) 5 MG tablet Take 5 mg by mouth 1 (one) time each day 0 Active Fluocinolone Acetonide 0.01 % oil fluocinolone acetonide oil 0.01 % ear drops INSTILL 4 DROPS IN EACH EAR EVERY DAY Active azelastine (ASTELIN) 0.1 % nasal spray azelastine 137 mcg (0.1 %) nasal spray aerosol USE 1 SPRAY IN EACH NOSTRIL TWICE A DAY Active Cholecalciferol (Vitamin D) 50 MCG (2000 UT) capsule Vitamin D3 2,000 units per day Active Cinnamon 500 MG tablet Take 500 mg by mouth 1 (one) time each day Active Active Problems Problem Noted Date Diagnosed Date Stage 3a chronic kidney disease 07/08/2020 Hypertriglyceridemia 06/13/2017 Essential (primary) hypertension Resolved Problems Problem Noted Date Diagnosed Date Resolved Date Essential hypertension 06/13/201707/08 Chronic kidney disease stage 3 07/08/2020 Immunizations Immunization Administration Dates Next Due Moderna SARS-COV-2 02/26/2021,07/24/2020, 021 Family History Medical History Relation Comments Heart disease Father Hyperlipidemia Father Kidney disease Father Heart disease Mother Hypertension Mother Diabetes Paternal Grandmother Relation Status Comments Father Mother Paternal Grandmother Social History Tobacco Use Types Packs/Day Years Used Date Smoking Tobacco: Never Assessed Comments Unknown Sex and Gender Information Value Date Recorded Sex Assigned at Not on file Legal Sex Female 4:39 PM EST Gender Identity Not on file Sexual Orientation Not on file Occupation Industry Job Start Date Job End Date Retired Nurse Not on file Not on file Not on file Last Filed Vital Signs Vital Sign Reading Time Taken Comments Blood Pressure 132/72 06/29/2022 11:40 AM EDT Pulse 68 06/29/2022 11:40 AM EDT Temperature 36.7 C (98 F) 06/25/2019 10:15 AM EDT Respiratory Rate 14 06/29/2022 11:40 AM EDT Oxygen Saturation - - Inhaled Oxygen Concentration - - Weight 67.1 kg (148 lb) 06/29/2022 11:40 AM EDT Height 157.5 cm (5' 2 ) 06/29/2022 11:40 AM EDT Body Mass Index 27.07 06/29/2022 11:40 AM EDT Plan of Treatment Upcoming Encounters Date Type Department Care Team (Late st Contact Info) Description 06/27/2025 10:00 AM EDT Office Visit [facility], [address] [place] [address] Jesus Alberto Reyes MD [address] [place] [phone] Health Maintenance Due Date Last Done Comments Breast Cancer Screening 1955 Pneumococcal Vaccine: 50+ Ye ars (1 of 2 - PCV) 12/18/1974 Colorectal Cancer Screening: Annual FOBT 12/18/2004 Colorectal Cancer Screening: Sigmoidoscopy 12/18/2004 Influenza Vaccine (#1) 2024 Colorectal Cancer Screening: Colonoscopy 05/08/2034 05/08/2024 Hepatitis B Vaccine Aged Out No longe r eligible based on patient's age to complete this topic Insurance Medicare [facility] Care Teams Operator Electronic Warfare Relationship Specialty Start Date End Date Gilbert Reynoso DO [address] [place], [place] [address] [address] PCP - General Internal Medicine 06/13/19
--- OUTSIDE RECORDS SUMMARY | 2025-01-23 12:05 | XMS_ITS | Encounter Summary ---
Author Organization [facility] Address [address] [facility] [address] [place] [address] Phone Care Team Providers Care Reliability Specialist Name Role Phone Gilbert Reynoso DO Primary Care Provider [phone] Bigda, Gilbert Meade DO Unavailable Bigda, Gilbert Meade DO Unavailable Jesus Alberto Reyes MD Unavailable Reason for Referral * Outpatient Procedure - Closed Specialty Diagnoses / Procedures Referred By Helena perales Referred To Contact Diagnoses Cardiac murmur Procedures Adult Echo TTE Ninoska Foster CNP Phone: tel: fax: [email or web address] Referral ID Status Reason Start Date Expiration Date Visits Re quested Visits Authorized [id number] Closed 02/01/2018 04/02/2018 1 1 Encounter Details Date Type Department Care Team (Late st Contact Info) Description 01/31/2018 Ancillary Orders Virtual Department [address] [place] [address] Ninoska Foster CNP [address] [place] [address] [email or web address] Cardiac murmur Social History Tobacco Use Types Packs/Day Years [...] documented as of this encounter Results * TTE COMPREHENSIVE (02/10/2018 11:13 AM EDT) Body Surface Area 1.6 m2 Height 155 m Weight 63 kg Systolic BP 148 mmHg Diastolic BP 86 mmHg Left Atrium Dimension Anterior-Posterior 34 15 - 40 mm Aortic Valve Mean Gradient 5.00 mmHg Aortic Valve Time Velocity Integral 310.00 mm Aortic Valve Peak Velocity 1,540.00 mm/s Aortic Valve Peak Gradient 9.00 mmHg Aortic Sinus Diameter 25 mm Ascending Aorta Diameter 32 mm Inferior Vena Cava Diameter 16 0.0 - 21 mm Interventricular Septum Thickness 9 mm Left Ventricle Internal Diameter End Diastole 37 37 - 52 mm Left Ventricle Internal Diameter End Systole 23 22 - 35 mm Left Ventricular Outflow Tract Diameter 20.00 mm LVOT VTI REST 261.00 mm Left Ventricular Outflow Tract Velocity 1,210.00 mm/s Left Ventricular Outflow Tract Gradient at Rest 6.00 mmHg Left Ventricular Posterior Wall Thickness 10 mm Ejection Fraction 70 50 - 75 Percent Mitral Valve Deceleration Time 232.00 ms Mitral Valve A Wave Speed 912.00 mm/s Mitral Valve E Wave Speed 660.00 mm/s Right Ventricle Basal Diameter 29.40 25 - 41 mm Tricuspid Valve Peak Velocity 1.88 mm/s Raw LV EF% 61 % Left Atrial Volume 45 mL Left Atrial Volume Index 28.13 mL/m2 Aortic Valve Sinus Index 1 16 19 - 27 mm Ascending Aorta Diameter 20 mm Aortic Sinus Index 16 mm Ascending Aorta Index 20 mm Anatomical Region Laterality Modality Heart Ultrasound Narrative 02/10/2018 3:11 PM EDT The left ventricular cavity size and wall thickness are normal. Left ventricular systolic function is normal. There are no segmental left ventricular wall motion abnormalities noted. The estimated ejection fraction is 70% (Normal 50-75%). The left ventricular ejection fraction was measured by visual estimate. Left ventricular diastolic function appears within normal limits for age. No significant valvular disease. RVSP is 17 mmHg. Normal pulmonary pressure. No prior studies for comparison. Left Ventricle The left ventricular cavity size and wall thickness are normal. Left ventricular systolic function is normal. There are no segmental left ventricular wall motion abnormalities noted. The estimated ejection fraction is 70% (Normal 50-75%). The left ventricular ejection fraction was measured by visual estimate. Left ventricular diastolic function appears within normal limits for age. Right Ventricle The right ventricular size is normal. No evidence of right ventricular hypertrophy. The right ventricular systolic function is normal. Left Atrium The left atrium is normal in size. The left atrial anterior-posterior dimension measures 34 mm (normal 15-40 mm). The LA volume is 45 mL. The LA volume index is 28.13 mL/m2 (normal indexed value is 16-34 mL/m2). Right Atrium The right atrium is normal in size. The IVC is normal in size (2.1cm or less). The IVC measures 16 mm (normal <=21 mm). The IVC demonstrates normal collapse with inspiration which is consistent with normal RA pressure. Mitral Valve The mitral valve appears normal. The E/A ratio is 0.7. The E/E' AVG is 10.5. There is no evidence of mitral stenosis. There is posterior mitral annular calcification. There is trace mitral regurgitation detected by spectral and color Doppler. Tricuspid Valve The tricuspid valve appears normal. There is no evidence of tricuspid stenosis. The peak TR gradient is 14 mmHg. Assuming the RAP is 3. The estimated RVSP is 17 mmHg. Normal pulmonary pressure. There is evidence of trace tricuspid regurgitation by color and spectral Doppler. Aortic Valve The aortic valve appears normal. The aortic valve is tricuspid. There is no evidence of valvular aortic stenosis. The peak aortic valve gradient is 9 mmHg. The mean aortic gradient is 5 mmHg. There is no evidence of aortic regurgitation by color and spectral Doppler. The visualized portions of the thoracic aorta appear normal. Pulmonic Valve Pulmonary valve was not well visualized. The pulmonary valve appears normal. There is no evidence of pulmonic stenosis. There is evidence of trace pulmonary regurgitation by color and spectral Doppler. Pericardium There is no evidence of pericardial effusion. There no evidence of a pleural effusion. Interatrial Septum The interatrial septum appears abnormal. There is increased mobility of the interatrial septum. Interventricular Septum Interventricular septal motion appears normal. General Findings The image quality was fair (3). The rhythm is sinus rhythm. Color flow Doppler and Spectral Doppler used in the evaluation. Comparison Findings No prior studies for comparison. us Ninoska Foster PALLIATIVE CARE NURSE PRACTITIONER CV ECHO ORDERABLES Final Re sult documented in this encounter Visit Diagnoses Diagnosis Cardiac murmur Undiagnosed cardiac murmurs Cardiac murmur Undiagnosed cardiac murmurs documented in this encounter Care Teams Reliability Specialist Relationship Specialty Start Date End Date Gilbert Reynoso DO PCP - General 01/25/17 Gilbert Reynoso DO [address] [place] [address] [email or web address] Insurance Assigned Provider 08/15/1903/11 Gilbert Reynoso DO [address] [place] [address] [email or web address] Insurance Assigned Provider 05/17/2102/09 Jesus Alberto Reyes MD [address] [address] Nephrology 05/02/24 documented as of this encounter Additional Source Comments The information contained in this document represents components of the legal health record. It is not the complete legal health record.[facility]
--- OUTSIDE RECORDS SUMMARY | 2025-01-23 12:05 | XMS_ITS | Encounter Summary ---
Author Organization [facility] Address [address] [facility] [address] [place] [address] Phone Care Team Providers Care Recreational Programs Director Name Role Phone Gilbert Reynoso DO Primary Care Provider [phone] Gilbert Reynoso DO Unavailable Gilbert Reynoso DO Unavailable Jesus Alberto Reyes MD Unavailable Encounter Details Date Type Department Care Team (Late st Contact Info) Description 12/07/2018 Ancillary Orders Virtual Department [address] [place] [address] Gilbert Reynoso DO [address] [place] [address] Breast screening Social History Tobacco Use Types [...] MAMMOGRAM SCREENING WITH TOMOSYNTHESIS WITH CAD (BILATERAL) (03/07/2019 9:06 AM EST) Anatomical Region Laterality Modality Breast Left, Breast Right, Breast Bilateral Bila teral Mammography 03/07/2019 9:17 AM EST Impressions 03/07/2019 9:20 AM EST No mammographic evidence of malignancy. Recommend routine annual surveillance. BI-RADS CATEGORY: 2 - Benign finding. DENSITY: The breast tissue is heterogeneously dense, an appearance which lowers the sensitivity of mammography. POS - [id number] Narrative 03/07/2019 9:20 AM EST 63-year-old female with no current breast symptoms. Comparison made to previous on 03/06/2018 and as far back as 02/13/2013. Interpretation made in conjunction with computer-aided detection and tomosynthesis. The breasts are heterogeneously dense, which may obscure small masses. Stable bilateral nodularity and benign coarse macrocalcifications. There are no suspicious masses, areas of architectural distortion, or suspicious clusters of microcalcifications. Procedure Note Anirudh Steel MD - 03/07/2019 63-year-old female with no current breast symptoms. Comparison made toprevious on 03/06/2018 and as far back as 02/13/2013. Interpretation madein conjunction with computer-aided detection and tomosynthesis. The breasts are heterogeneously dense, which may obscure small masses.Stable bilateral nodularity and benign coarse macrocalcifications. There are no suspicious masses, areas of architectural distortion, orsuspicious clusters of microcalcifications. IMPRESSION: No mammographic evidence of malignancy. Recommend routine annualsurveillance. BI-RADS CATEGORY: 2 - Benign finding. DENSITY: The breast tissue is heterogeneously dense, an appearance whichlowers the sensitivity of mammography. POS - [id number] us Gilbert Reynoso DO IM MG EXAMS Final Result documented in this encounter Visit Diagnoses Diagnosis Breast screening Breast screening, unspecified Breast screening Breast screening, unspecified documented in this encounter Care Teams Recreational Programs Director Relationship Specialty Start Date End Date Gilbert Reynoso DO PCP - General 01/25/17 Gilbert Reynoso DO [address] [place] [address] Insurance Assigned Provider 08/15/1903/11 Gilbert Reynoso DO [address] [place] [address] Insurance Assigned Provider 05/17/2102/09 Jesus Alberto Reyes MD [address] [address] Nephrology 05/02/24 documented as of this encounter Additional Source Comments The information contained in this document represents components of the legal health record. It is not the complete legal health record.[facility]
--- OUTSIDE RECORDS SUMMARY | 2025-01-23 12:05 | XMS_ITS | Encounter Summary ---
Author Organization [facility], Address [address] [place] [address] Phone Care Team Providers Care Civil Engineering Professor Name Role Phone Gilbert Reynoso DO Primary Care Provider [phone] Encounter Details Date Type Department Care Team (Late st Contact Info) Description 06/24/2023 Documentation Only [facility] [address] [place] [address] Yolette Santacruz [address] [place] [phone] Social History Tobacco Use Types Packs/Day Years [...] Visit [facility] [address] Pat BALL [address] [place] [phone] Jesus Alberto Reyes MD [address] [facility] [place] [address] documented as of this encounter Visit Diagnoses Not on filedocumented in this encounter Care Teams Civil Engineering Professor Relationship Specialty Start Date End Date Gilbert Reynoso DO 6 [place] [phone] PCP - General Internal Medicine 06/13/19 documented as of this encounter
--- OUTSIDE RECORDS SUMMARY | 2025-01-23 12:05 | XMS_ITS | Encounter Summary ---
Author Organization [facility], Address [address] [place] [address] Phone Care Team Providers Care In Flight Refueling Manager Name Role Phone Gilbert Reynoso DO Primary Care Provider Encounter Details Date Type Department Care Team (Late Contact Info) Description 01/04/2020 Orders Only [facility] [place] - [facility] [address] [facility] 3 [place] [phone] Melissa Keller MD Chronic kidney disease stage [...] Visit [facility] [address] Pat BALL [address] [place] [phone] Jesus Alberto Reyes MD [address] [place] [address] [place] [phone] documented as of this encounter Visit Diagnoses Diagnosis Chronic kidney disease stage 3 (HCC) documented in this encounter Care Teams In Flight Refueling Manager Relationship Specialty Start Date End Date Gilbert Reynoso DO [address] [place] [address] PCP - General Internal Medicine 06/13/19 documented as of this encounter
--- OUTSIDE RECORDS SUMMARY | 2025-01-23 12:05 | XMS_ITS | Encounter Summary ---
Author Organization [facility] Address [address] [facility] [address] [place] [address] Phone Care Team Providers Care Color Control Supervisor Name Role Phone DenisenellGilbert DO Primary Care Provider [phone] Jesus Alberto Reyes MD Unavailable Encounter Details Date Type Department Care Team (Late st Contact Info) Description 02/24/2024 Procedure Pass [facility], [facility] [address] [place] [address] Social History Tobacco Use Types Packs/Day Years [...] on filedocumented in this encounter Care Teams Color Control Supervisor Relationship Specialty Start Date End Date Gilbert Reynoso DO [email or web address] PCP - General 01/25/17 Jesus Alberto Reyes MD 15 [place] [address] [email or web address] Nephrology 05/02/24 documented as of this encounter Additional Source Comments The information contained in this document represents components of the legal health record. It is not the complete legal health record.[facility]
--- OUTSIDE RECORDS SUMMARY | 2025-01-23 12:05 | XMS_ITS | Encounter Summary ---
Author Organization [facility], Address [address] [place] [address] Phone Care Team Providers Care Activities Attendant Name Role Phone Gilbert Reynoso DO Primary Care Provider [phone] Encounter Details Date Type Department Care Team (Late st Contact Info) Description 06/24/2023 Documentation Only [facility] [address] [place] [address] Yolette Santacruz [address] [place] [phone] Social History Tobacco Use Types Packs/Day [...] Visit [facility] [address] Pat BALL [address] [place] [phone] Jesus Alberto Reyes MD [address] [facility] [place] [address] documented as of this encounter Visit Diagnoses Not on filedocumented in this encounter Care Teams Activities Attendant Relationship Specialty Start Date End Date Gilbert Reynoso DO 6 [place] [phone] PCP - General Internal Medicine 06/13/19 documented as of this encounter
--- OUTSIDE RECORDS SUMMARY | 2025-01-23 12:05 | XMS_ITS | Encounter Summary ---
Author Organization [facility], Address [address] [place] [address] Phone Care Team Providers Care Tire Service Technician Name Role Phone Gilbert Reynoso DO Primary Care Provider [phone] Encounter Details Date Type Department Care Team (Late st Contact Info) Description 06/21/2022 Documentation Only [facility] [address] Pat BALL [address] [place] [address] Melissa Keller MD Social History [...] Visit [facility] [address] [place] [phone] Jesus Alberto Reyes MD [address] [place] [address] [place] [phone] documented as of this encounter Visit Diagnoses Not on filedocumented in this encounter Care Teams Tire Service Technician Relationship Specialty Start Date End Date Gilbert Reynoso DO 6 [facility] [place] [address] PCP - General Internal Medicine 06/13/19 documented as of this encounter
--- OUTSIDE RECORDS SUMMARY | 2025-01-23 12:05 | XMS_ITS | Encounter Summary ---
Author Organization [facility] Address [address] [facility] [address] [place] [address] Phone Care Team Providers Care Security Systems Administrator Name Role Phone Gilbert Reynoso DO Primary Care Provider [phone] Gilbert Reynoso DO Unavailable Gilbert Reynoso DO Unavailable Jesus Alberto Reyes MD Unavailable Encounter Details Date Type Department Care Team (Late st Contact Info) Description 01/29/2017 Ancillary Orders [facility], Bone Density - [facility] [address] [place] [address] Gilbert Reynoso DO 179 [facility] [place] [address] Postmenopausal Social History Tobacco Use Types Packs/Day Years [...] documented as of this encounter Results * BD DXA AXIAL (SPINE) WITH HIP (02/23/2017 9:46 AM EST) Anatomical Region Laterality Modality Bone Density Bone Density 02/23/2017 9:50 AM EST Impressions 02/23/2017 9:52 AM EST Overall normal bone mineral density with interval decrease in the lumbar spine and hips since 2008. POS - [id number] Narrative 02/23/2017 9:52 AM EST This is a 61-year-old postmenopausal white female who is not an SUV replacement therapy and does not take calcium supplements. She describes a perceived height loss of approximately 1/2 inch. Evaluation of the lumbar spine and hips was performed and felt to be technically adequate, with comparison made to the prior study of 12/31/2008. Total bone mineral density in the L1-L4 vertebral bodies was calculated at 1.013 gm/cm2 with a T-score of -0.3 and Z-score of 1.2, falling within the WHO classification of normal, representing an interval decline of 12.5% since 2008. Total bone mineral density in the right hip was calculated at 0.839 gm/cm2 with a T-score of -0.8 and Z-score of 0.2 falling within the WHO classification of normal, representing an interval decline of 8.9% since 2008. Total bone mineral density in the left hip was calculated at 0.901 gm/cm2 with a T-score of 0.3 and Z-score of 0.7 falling within the WHO classification of normal, representing a 10.3% decline since 2008. Procedure Note Rashawn Fox MD - 02/23/2017 This is a 61-year-old postmenopausal white female who is not an SUVreplacement therapy and does not take calcium supplements. She describesa perceived height loss of approximately 1/2 inch. Evaluation of the lumbar spine and hips was performed and felt to betechnically adequate, with comparison made to the prior study of12/31/2008. Total bone mineral density in the L1-L4 vertebral bodies was calculated at1.013 gm/cm2 with a T-score of -0.3 and Z-score of 1.2, falling within theWHO classification of normal, representing an interval decline of 12.5%since 2008. Total bone mineral density in the right hip was calculated at 0.839 gm/ji6wpwp a T-score of -0.8 and Z-score of 0.2 falling within the WHOclassification of normal, representing an interval decline of 8.9% [id number]. Total bone mineral density in the left hip was calculated at 0.901gm/cm2 with a T-score of 0.3 and Z-score of 0.7 falling within the WHOclassification of normal, representing a 10.3% decline since 2008. IMPRESSION: Overall normal bone mineral density with interval decrease in the lumbarspine and hips since 2008. POS - [id number] Gilbert Meade [place] PINEDO IMG BD BONE DENSITY DEXA Final R esult documented in this encounter Visit Diagnoses Diagnosis Postmenopausal Asymptomatic postmenopausal status (age-related) (natural) Postmenopausal Asymptomatic postmenopausal status (age-related) (natural) documented in this encounter Care Teams Security Systems Administrator Relationship Specialty Start Date End Date Gilbert Reynoso DO PCP - General 01/25/17 Gilbert Reynoso DO 179 [place] [address] Insurance Assigned Provider 08/15/1903/11 Gilbert Reynoso DO 179 [place] [address] Insurance Assigned Provider 05/17/2102/09 Jesus Alberto Reyes MD [address] [address] Nephrology 05/02/24 documented as of this encounter Additional Source Comments The information contained in this document represents components of the legal health record. It is not the complete legal health record.[facility]
--- OUTSIDE RECORDS SUMMARY | 2025-01-23 12:06 | XMS_ITS | Encounter Summary ---
Author Organization [facility] [place], Address [address] [place] [address] Phone Care Team Providers Care One Piece Expansion Maker Hand Name Role Phone Gilbert Reynoso DO Primary Care Provider [phone] Encounter Details Date Type Department Care Team (Late st Contact Info) Description 06/24/2023 Documentation Only [facility] [address] [place] [address] Yolette Santacruz [address] [place] [phone] Social History Tobacco Use Types Packs/Day [...] Visit [facility] [address] Pat BALL [address] [place] [phone] Jesus Alberto Reyes MD [address] [facility] [place] [address] documented as of this encounter Visit Diagnoses Not on filedocumented in this encounter Care Teams One Piece Expansion Maker Hand Relationship Specialty Start Date End Date Gilbert Reynoso DO 6 [place] [phone] PCP - General Internal Medicine 06/13/19 documented as of this encounter
--- OUTSIDE RECORDS SUMMARY | 2025-01-23 12:06 | XMS_ITS | Encounter Summary ---
Author Organization [facility], Address [address] [place] [address] Phone Care Team Providers Care Librarian Special Collections Name Role Phone Gilbert Reynoso DO Primary Care Provider [phone] Encounter Details Date Type Department Care Team (Late st Contact Info) Description 06/11/2024 Documentation Only [facility] [address] [place] [address] Izabel Brown [address] [place] [phone] Social History Tobacco Use Types Packs/Day [...] Visit [facility] - Jan BALL [address] [place] [phone] Jesus Alberto Reyes MD [address] [facility] [place] [phone] documented as of this encounter Visit Diagnoses Not on filedocumented in this encounter Care Teams Librarian Special Collections Relationship Specialty Start Date End Date Gilbert Reynoso DO 6 [place] [address] PCP - General Internal Medicine 06/13/19 documented as of this encounter
== END 2025-01-23 10:13 | disposition home or self-care (01) ==
LOC: HO.HMGAL 10:12
PROVIDERS: PCP Internal Medicine; Visit Provider Registered Nurse Emergency
DX: J30.89 Other allergic rhinitis (principal)
CPT/HCPCS: 95117; 95165

== ENCOUNTER 2025-01-30 09:01 | Outpatient (REF) | payer MEDICARE, OTHER, SELFPAY ==
[2025-01-30 13:00] LABS: MANUAL DIFF FLAG NO
[2025-01-30 13:15] LABS: Hematocrit 38.5 % (37.0-47.0); Hemoglobin 12.8 g/dl (12.0-16.0); Imm Gran Abs Auto 0.02 X10*3/uL (0.00-0.03); Imm Gran Pct Auto 0.3 % (0.0-0.4); Lymphocytes Absolute Auto 1.6 X10*3/uL (1.2-4.9); Mean Corpuscular HGB Conc 33.2 g/dl (31.0-35.0); Mean Corpuscular Hemoglobin 29.6 pg (27.0-33.0); Mean Corpuscular Volume 88.9 fL (80.0-98.0); NRBC Abs Auto 0.000 X10*3/uL (0.0-0.012); NRBC Pct Auto 0.0 /100WBC (0.0-0.2); Platelet Count 321 X10*3/uL (160-400); Red Blood Count 4.33 X10*6/uL (4.20-5.50); White Blood Count 7.0 X10*3/uL (4.8-10.8)
[2025-01-30 13:25] LABS: Hemoglobin A1C 132.5520 umol/L; Total Hemoglobin (HGBA1C) 3384.7302 umol/L
[2025-01-30 13:42] LABS: Alanine Aminotransferase 24 U/L (0-31); Albumin Level 4.1 g/dL (3.5-5.0); Alkaline Phosphatase 73 U/L (39-117); Anion Gap 9 (12-20); Aspartate Amino Transferase 23 U/L (5-31); Blood Urea Nitrogen 17 mg/dL (9-16); Calcium 9.0 mg/dL (8.4-10.2); Carbon Dioxide 27 mmol/L (22-29); Chloride 110 mmol/L (96-108); Cholesterol 166 mg/dL (<200); Estimated Glomerular Filt Rate 40; HDL Cholesterol 38 mg/dL (>40); Potassium 4.5 mmol/L (3.3-5.1); Sodium 141 mmol/L (135-145); Total Protein 6.7 g/dL (6.5-8.0); Triglycerides 223 mg/dL (<150)
== END 2025-01-30 09:02 | disposition home or self-care (01) ==
LOC: HO.MANLDS 09:01
PROVIDERS: Visit Provider Physician Assistant
DX: E78.2 Mixed hyperlipidemia (principal); Z13.1 Encounter for screening for diabetes mellitus
CPT/HCPCS: 36415; 80053; 80061; 83036; 85025

== ENCOUNTER 2025-02-20 09:34 | Outpatient (AMB) | payer MEDICARE, OTHER, SELFPAY ==
--- OUTSIDE RECORDS SUMMARY | 2025-02-20 10:46 | XMS_ITS | Encounter Summary ---
Author Organization [facility] Address [address] [facility] [address] [place] [address] Phone Care Team Providers Care Rayon Winder Name Role Phone Gilbert Reynoso DO Primary Care Provider [phone] Gilbert Reynoso DO Unavailable Jesus Alberto Reyes MD Unavailable Encounter Details Date Type Department Care Team (Late st Contact Info) Description 01/28/2022 Transcribe Orders Virtual Department 30 [place] [address] Gilbert Reynoso DO 179 [facility] [place] [address] [email or web address] Breast screening (Primary Dx) Social History Tobacco [...] Care Team (Late st Contact Info) Description 01/24/2025 Procedure Pass [address] [address] 09/30/2025 8:45 AM EDT Appointment [address] [address] Gilbert Reynoso DO [address] [facility] [place] [address] [email or web address] documented as of this encounter Results * [...] unspecified documented in this encounter Care Teams Rayon Winder Relationship Specialty Start Date End Date Gilbert Reynoso DO [email or web address] PCP - General 01/25/17 Gilbert Reynoso DO [address] [facility] [place] [address] [email or web address] Insurance Assigned Provider 05/17/2102/09 Jesus Alberto Reyes MD [address] [address] [email or web address] Nephrology 05/02/24 documented as of this encounter Additional Source Comments The information contained in this document represents components of the legal health record. It is not the complete legal health record.[facility]
--- OUTSIDE RECORDS SUMMARY | 2025-02-20 10:46 | XMS_ITS | Encounter Summary ---
Author Organization [facility] Address [address] [facility] [address] [place] [address] Phone Care Team Providers Care Director Of Learning Name Role Phone Gilbert Reynoso DO Primary Care Provider [phone] Gilbert Reynoso DO Unavailable Gilbert Reynoso DO Unavailable Jesus Alberto Reyes MD Unavailable Encounter Details Date Type Department Care Team (Late st Contact Info) Description 01/06/2021 Procedure Pass [address] [address] Social History Tobacco Use Types Packs/Day Years [...] st Contact Info) Description 01/24/2025 Procedure Pass [address] [address] 09/30/2025 8:45 AM EDT Appointment [address] [address] Gilbert Reynoso DO [address] [place] [address] documented as of this encounter Visit Diagnoses Not on filedocumented in this encounter Care Teams Director Of Learning Relationship Specialty Start Date End Date DeniseGilbert camejoDO PCP - General 01/25/17 [place] Gilbert DO Halina [address] [facility] [place] [address] Insurance Assigned Provider 08/15/1903/11 Gilbert Reynoso DO [address] [place] [address] Insurance Assigned Provider 05/17/2102/09 Jesus Alberto Reyes MD [address] [address] Nephrology 05/02/24 documented as of this encounter Additional Source Comments The information contained in this document represents components of the legal health record. It is not the complete legal health record.[facility]
--- OUTSIDE RECORDS SUMMARY | 2025-02-20 10:46 | XMS_ITS | Encounter Summary ---
Author Organization [facility] Address [address] [facility] [address] [place] [address] Phone Care Team Providers Care Parking Assistant Name Role Phone Gilbert Reynoso DO Primary Care Provider [phone] Gilbert Reynsoo DO Unavailable Jesus Alberto Reyes MD Unavailable Encounter Details Date Type Department Care Team (Late st Contact Info) Description 01/28/2022 Procedure Pass [address] [address] Social History Tobacco Use Types Packs/Day Years [...] st Contact Info) Description 01/24/2025 Procedure Pass [address] [address] 09/30/2025 8:45 AM EDT Appointment [address] [address] Gilbert Reynoso DO 179 [place] [address] documented as of this encounter Visit Diagnoses Not on filedocumented in this encounter Care Teams Parking Assistant Relationship Specialty Start Date End Date Gilbert Reynoso DO PCP - General 01/25/17 Gilbert Reynoso DO 179 [place] [address] Insurance Assigned Provider 05/17/2102/09 Jesus Alberto Reyes MD [address] [address] Nephrology 05/02/24 documented as of this encounter Additional Source Comments The information contained in this document represents components of the legal health record. It is not the complete legal health record.[facility]
--- OUTSIDE RECORDS SUMMARY | 2025-02-20 10:47 | XMS_ITS | Encounter Summary ---
Author Organization [facility] Address [address] [facility] [address] [place] [address] Phone Care Team Providers Care Furnace Mechanic Name Role Phone Gilbert Reynoso DO Primary Care Provider [phone] Gilbert Reynoso DO Unavailable Gilbert Reynoso DO Unavailable Jesus Alberto Reyes MD Unavailable Encounter Details Date Type Department Care Team (Late st Contact Info) Description 01/16/2020 Ancillary Orders Virtual Department 30 [place] [address] Gilbert Reynoso DO [address] [facility] [place] [address] [email or web address] Breast screening Social History Tobacco Use Types [...] st Contact Info) Description 01/24/2025 Procedure Pass [facility] 30 [place] [address] 09/30/2025 8:45 AM EDT Appointment [facility] [address] [place] [address] Gilbert Reynoso, [address] [facility] [place] [address] [email or web address] documented as of this encounter Results * [...] unspecified documented in this encounter Care Teams Furnace Mechanic Relationship Specialty Start Date End Date Gilbert Reynoso DO PCP - General 01/25/17 Gilbert Reynoso 179 [place] [address] Insurance Assigned Provider 08/15/1903/11 Gilbert Reynoso DO 179 [place] [address] Insurance Assigned Provider 05/17/2102/09 Jesus Alberto Reyes MD [address] [address] Nephrology 05/02/24 documented as of this encounter Additional Source Comments The information contained in this document represents components of the legal health record. It is not the complete legal health record.[facility]
--- OUTSIDE RECORDS SUMMARY | 2025-02-20 10:47 | XMS_ITS | Encounter Summary ---
Author Organization [facility] Address [address] [facility] [address] [place] [address] Phone Care Team Providers Care Sales Agent Casualty Insurance Name Role Phone Gilbert Reynoso DO Primary Care Provider [phone] Bigda, Gilbert A DO Unavailable Bigda, Gilbert A DO Unavailable Jesus Alberto Reyes MD Unavailable Encounter Details Date Type Department Care Team (Latest Contact Info) Description 05/22/2019 Transcribe Orders Virtual Department [address] [place] [address] Rosemarie Oneil PA-C [address] [place]. [address] [place] [address] [email or web address] Abnormal results of kidney function studies (Primary [...] st Contact Info) Description 01/24/2025 Procedure Pass [facility], [facility] 30 [place] [address] 09/30/2025 8:45 AM EDT Appointment [facility], [facility] [address] [place] [address] Gilbert Reynoso, 179 [facility] [place] [address] [email or web address] documented as of this encounter Results * US Kidneys (06/07/2019 9:09 AM EST) Anatomical Region Laterality Modality Abdomen, Kidney Ultrasound 06/07/2019 12:5 8 PM EST Impressions 06/07/2019 1:00 PM EST Normal renal ultrasound. POS - [id number] Narrative 06/07/2019 1:00 PM EST EXAM: US [...] calculi. IMPRESSION: Normal renal ultrasound. POS - [id number] july Clarice SARGENT IMMalcolm US RENAL Final Result documented in this encounter Visit Diagnoses Diagnosis Abnormal results of kidney function studies- Primary Nonspecific abnormal results of kidney function study Abnormal results of kidney function studies Nonspecific abnormal results of kidney function study documented in this encounter Care Teams Sales Agent Casualty Insurance Relationship Specialty Start Date End Date DeniseGilbert camejoDO PCP - General 01/25/17 Gilbert Reynoso DO 179 [place] [address] Insurance Assigned Provider 08/15/1903/11 Gilbert Reynoso DO 179 [place] [address] Insurance Assigned Provider 05/17/2102/09 Jesus Alberto Reyes MD [address] [address] Nephrology 05/02/24 documented as of this encounter Additional Source Comments The information contained in this document represents components of the legal health record. It is not the complete legal health record.[facility]
--- OUTSIDE RECORDS SUMMARY | 2025-02-20 10:47 | XMS_ITS | Encounter Summary ---
Author Organization [facility] Address [address] [facility] [address] [place] [address] Phone Care Team Providers Care Customer Support Associate Name Role Phone Gilbert Reynoso DO Primary Care Provider [phone] Jesus Alberto Reyes MD Unavailable Encounter Details Date Type Department Care Team (Late st Contact Info) Description 05/08/2024 Procedure Pass [facility] Admitting Dept Virtual Department 30 [place] [address] Social History Tobacco Use Types Packs/Day Years [...] st Contact Info) Description 01/24/2025 Procedure Pass [facility], [address] [address] 09/30/2025 8:45 AM EDT Appointment [address] [address] Gilbert Reynoso DO 179 [facility] [place] [address] documented as of this encounter Visit Diagnoses Not on filedocumented in this encounter Care Teams Customer Support Associate Relationship Specialty Start Date End Date Gilbert Reynoso DO PCP - General 01/25/17 Jesus Alberto Reyes MD 15 [facility] 303 [place] [address] Nephrology 05/02/24 documented as of this encounter Additional Source Comments The information contained in this document represents components of the legal health record. It is not the complete legal health record.[facility]
--- OUTSIDE RECORDS SUMMARY | 2025-02-20 10:47 | XMS_ITS | Encounter Summary ---
Author Organization [facility] Address [address] [facility] [address] [place] [address] Phone Care Team Providers Care Pyrometer Temperature Regulator Name Role Phone Gilbert Reynoso DO Primary Care Provider [phone] Gilbert Reynoso DO Unavailable Jesus Alberto Reyes MD Unavailable Encounter Details Date Type Department Care Team (Late st Contact Info) Description 12/30/2022 Procedure Pass [facility], [facility] 30 [place] [address] Social History Tobacco Use Types Packs/Day Years [...] st Contact Info) Description 01/24/2025 Procedure Pass [address] [address] 09/30/2025 8:45 AM EDT Appointment [address] [address] Gilbert Reynoso DO 179 [facility] [place] [address] [email or web address] documented as of this encounter Visit Diagnoses Not on filedocumented in this encounter Care Teams Pyrometer Temperature Regulator Relationship Specialty Start Date End Date Gilbert Reynoso DO PCP - General 01/25/17 Gilbert Reynoso DO 179 [facility] [place] [address] Insurance Assigned Provider 05/17/2102/09 Jesus Alberto Reyes MD [address] [address] Nephrology 05/02/24 documented as of this encounter Additional Source Comments The information contained in this document represents components of the legal health record. It is not the complete legal health record.[facility]
--- OUTSIDE RECORDS SUMMARY | 2025-02-20 10:48 | XMS_ITS | Encounter Summary ---
Author Organization [facility] Address [address] [facility] [address] [place] [address] Phone Care Team Providers Care Patient Biller Name Role Phone Gilbert Reynoso DO Primary Care Provider [phone] Jesus Alberto Reyes MD Unavailable Encounter Details Date Type Department Care Team (Late st Contact Info) Description 01/24/2025 Transcribe Orders Virtual Department [address] [place] [address] Gilbert Reynoso DO 179 [facility] [place] [address] [email or web address] Breast screening (Primary Dx) Social History Tobacco [...] st Contact Info) Description 01/24/2025 Procedure Pass [address] [address] 09/30/2025 8:45 AM EDT Appointment [address] [address] Gilbert Reynoso DO 179 [place] [address] [email or web address] Scheduled Orders Name Type Priority Associated Diagnoses Orde r Schedule Mammogram Screening (Bilateral) Imaging Routine Breast screening Expected: 01/24/2025, Expires: 01/24/2027 documented as of this encounter Visit Diagnoses Diagnosis Breast screening- Primary Breast screening, unspecified documented in this encounter Care Teams Patient Biller Relationship Specialty Start Date End Date Gilbert Reynoso DO PCP - General 01/25/17 Jesus Alberto Reyes MD 15 [facility] 303 [place] [address] Nephrology 05/02/24 documented as of this encounter Additional Source Comments The information contained in this document represents components of the legal health record. It is not the complete legal health record.[facility]
--- OUTSIDE RECORDS SUMMARY | 2025-02-20 10:48 | XMS_ITS | Encounter Summary ---
Author Organization [facility] Address [address] [place] [address] Phone Care Team Providers Care Cafe Or Restaurant Manager Name Role Phone Gilbert Reynoso DO Primary Care Provider [phone] Encounter Details Date Type Department Care Team (Late Contact Info) Description 07/04/2020 Orders Only [facility] [place] [facility] [address] [facility] 3 [place] [phone] Melissa Keller MD Chronic kidney disease stage [...] Upcoming Encounters Date Type Department Care Team ([facility] Contact Info) Description 06/27/2025 10:00 AM EDT Office Visit [facility] [address] [place] [phone] Jesus Alberto Reyes MD [address] [place] [address] [place] [address] documented as of this encounter Visit Diagnoses Diagnosis Chronic kidney disease stage 3 (HCC) documented in this encounter Care Teams Cafe Or Restaurant Manager Relationship Specialty Start Date End Date Gilbert Reynoso DO 6 [place] [address] PCP - General Internal Medicine 06/13/19 documented as of this encounter
--- OUTSIDE RECORDS SUMMARY | 2025-02-20 10:48 | XMS_ITS | Clinical Summary ---
Author Organization [facility], Address [address] [place] [phone] Phone Care Team Providers Care Customs Brokerage Manager Name Role Phone Gilbert Reynoso DO Primary Care Provider [phone] Allergies Active Allergy Reactions Criticality Noted Date [...] Visit [facility] [place], [address] [place] [address] Jesus Alberto Reyes MD [address] [place] [phone] Health Maintenance Due Date Last Done Comments Breast Cancer Screening 1955 Pneumococcal Vaccine: 50+ Ye ars (1 of 2 - PCV) 12/18/1974 Colorectal Cancer Screening: Annual FOBT 12/18/2004 Colorectal Cancer Screening: Sigmoidoscopy 12/18/2004 Influenza Vaccine (#1) 2024 Colorectal Cancer Screening: Colonoscopy 05/08/2034 05/08/2024 Hepatitis B Vaccine Aged Out No longe r eligible based on patient's age to complete this topic Insurance Medicare [facility] Care Teams Customs Brokerage Manager Relationship Specialty Start Date End Date Gilbert Reynoso DO [address] [place], [place] [address] [address] PCP - General Internal Medicine 06/13/19
--- OUTSIDE RECORDS SUMMARY | 2025-02-20 10:48 | XMS_ITS | Encounter Summary ---
Author Organization [facility] Address [address] [facility] [address] [place] [address] Phone Care Team Providers Care Balance Wheel Hand Filer Name Role Phone Denisenell Gilbert Meade DO Primary Care Provider [phone] Jesus Alberto Reyes MD Unavailable Encounter Details Date Type Department Care Team (Late st Contact Info) Description 02/24/2024 Procedure Pass [facility], [address] [address] Social History Tobacco Use Types Packs/Day Years [...] st Contact Info) Description 01/24/2025 Procedure Pass [facility], [address] [address] 09/30/2025 8:45 AM EDT Appointment [address] [address] Gilbert Reynoso DO 179 [place] [address] [email or web address] documented as of this encounter Visit Diagnoses Not on filedocumented in this encounter Care Teams Balance Wheel Hand Filer Relationship Specialty Start Date End Date Gilbert Reynoso DO [email or web address] PCP - General 01/25/17 Jesus Alberto Reyes MD 15 [facility] 303 [place] [address] Nephrology 05/02/24 documented as of this encounter Additional Source Comments The information contained in this document represents components of the legal health record. It is not the complete legal health record.[facility]
--- OUTSIDE RECORDS SUMMARY | 2025-02-20 10:48 | XMS_ITS | Encounter Summary ---
Author Organization [facility] Address [address] [facility] [address] [place] [address] Phone Care Team Providers Care Cargo Mate Name Role Phone Gilbert Reynoso DO Primary Care Provider [phone] Gilbert Reynoso DO Unavailable Gilbert Reynoso DO Unavailable Jesus Alberto Reyes MD Unavailable Encounter Details Date Type Department Care Team (Late st Contact Info) Description 12/07/2018 Ancillary Orders Virtual Department 30 [place] [address] Gilbert Reynoso DO 179 [facility] [place] [address] Breast screening Social History Tobacco Use Types [...] st Contact Info) Description 01/24/2025 Procedure Pass [facility] 30 [place] [address] 09/30/2025 8:45 AM EDT Appointment [facility] 30 [place] [address] Gilbert Reynoso, 179 [facility] [place] [address] [email or web address] documented as of this encounter Results * [...] lowers the sensitivity of mammography. POS - [id number] Narrative 03/07/2019 9:20 AM EST 63-year-old female [...] whichlowers the sensitivity of mammography. POS - [id number] Gilbert Reynoso DO IMG MG EXAMS Final Result documented in this encounter Visit Diagnoses Diagnosis Breast screening Breast screening, unspecified Breast screening Breast screening, unspecified documented in this encounter Care Teams Cargo Mate Relationship Specialty Start Date End Date AngelesGilbertDO PCP - General 01/25/17 Gilbert Reynoso DO 179 [place] [address] Insurance Assigned Provider 08/15/1903/11 Gilbert Reynoso DO 179 [place] [address] Insurance Assigned Provider 05/17/2102/09 Jesus Alberto Reyes MD [address] [address] Nephrology 05/02/24 documented as of this encounter Additional Source Comments The information contained in this document represents components of the legal health record. It is not the complete legal health record.[facility]
--- OUTSIDE RECORDS SUMMARY | 2025-02-20 10:48 | XMS_ITS | Encounter Summary ---
Author Organization [facility], Address [address] [place] [address] Phone Care Team Providers Care Gas Check Pad Maker Name Role Phone Gilbert Reynoso DO Primary Care Provider [phone] Encounter Details Date Type Department Care Team (Late st Contact Info) Description 06/21/2022 Documentation Only [facility] [address] [place] [address] Melissa Keller MD Social History [...] Visit [facility] [address] [place] [phone] Jesus Alberto Reyes MD [address] [place] [address] [place] [phone] documented as of this encounter Visit Diagnoses Not on filedocumented in this encounter Care Teams Gas Check Pad Maker Relationship Specialty Start Date End Date Gilbert Reynoso DO 6 [facility] [place] [address] PCP - General Internal Medicine 06/13/19 documented as of this encounter
--- OUTSIDE RECORDS SUMMARY | 2025-02-20 10:48 | XMS_ITS | Encounter Summary ---
Author Organization [facility] [place] [facility], Address [address] [place] [address] Phone Care Team Providers Care Belt Fixer Name Role Phone Gilbert Reynoso DO Primary Care Provider [phone] Encounter Details Date Type Department Care Team (Late st Contact Info) Description 06/24/2023 Documentation Only [facility] [address] [place] [address] Yolette Santacruz [address] [place] [phone] Social History Tobacco Use Types Packs/Day [...] Visit [facility] [place] [address] Pat [address] [place] [phone] Jesus Alberto Reyes MD [address] [facility] [place] [address] documented as of this encounter Visit Diagnoses Not on filedocumented in this encounter Care Teams Belt Fixer Relationship Specialty Start Date End Date Gilbert Reynoso DO 6 [place] [phone] PCP - General Internal Medicine 06/13/19 documented as of this encounter
--- OUTSIDE RECORDS SUMMARY | 2025-02-20 10:48 | XMS_ITS | Encounter Summary ---
Author Organization [facility] Address [address] [facility] [address]85 [place] [address] Phone Care Team Providers Care Casing Cooker Name Role Phone Gilbert Reynoso DO Primary Care Provider [phone] Gilbert Reynoso DO Unavailable Gilbert Reynoso DO Unavailable Jesus Alberto Reyes MD Unavailable Encounter Details Date Type Department Care Team (Late st Contact Info) Description 12/08/2017 Ancillary Orders Virtual Department 30 [place] [address] Gilbert Reynoso DO 179 [place] [address] Breast screening Social History Tobacco Use Types [...] st Contact Info) Description 01/24/2025 Procedure Pass [facility] 30 [place] [address] 09/30/2025 8:45 AM EDT Appointment [facility] 30 [place] [address] Gilbert Reynoso, 179 [place] [address] [email or web address] documented as of this encounter Results * [...] of mammography. POS - [id number] us Gilbert Meade Denisenell IMG MG EXAMS Final Result documented in this encounter Visit Diagnoses Diagnosis Breast screening Breast screening, unspecified Breast screening Breast screening, unspecified documented in this encounter Care Teams Casing Cooker Relationship Specialty Start Date End Date Gilbert Reynoso DO PCP - General 01/25/17 Gilbert Reynoso DO 179 [place] [address] Insurance Assigned Provider 08/15/1903/11 Gilbert Reynoso DO 179 [place] [address] Insurance Assigned Provider 05/17/2102/09 Jesus Alberto Reyes MD 15 [facility] 303 [place] [address] Nephrology 05/02/24 documented as of this encounter Additional Source Comments The information contained in this document represents components of the legal health record. It is not the complete legal health record.[facility]
--- OUTSIDE RECORDS SUMMARY | 2025-02-20 10:48 | XMS_ITS | Encounter Summary ---
Author Organization [facility] Address [address] [facility] [address] [place] [address] Phone Care Team Providers Care Teacher Industrial Arts Name Role Phone Gilbert Reynoso DO Primary Care Provider [phone] Gilbert Reynoso DO Unavailable Gilbert Reynoso DO Unavailable Jesus Alberto Reyes MD Unavailable Encounter Details Date Type Department Care Team (Late st Contact Info) Description 01/16/2020 Procedure Pass [address] [address] Social History Tobacco Use Types Packs/Day Years [...] st Contact Info) Description 01/24/2025 Procedure Pass [address] [address] 09/30/2025 8:45 AM EDT Appointment [address] [address] Gilbert Reynoso DO 179 [place] [address] documented as of this encounter Visit Diagnoses Not on filedocumented in this encounter Care Teams Teacher Industrial Arts Relationship Specialty Start Date End Date DeniseGilbert camejoDO PCP - General 01/25/17 Gilbert Reynoso DO 179 [facility] [place] [address] Insurance Assigned Provider 08/15/1903/11 Gilbert Reynoso DO 179 [place] [address] Insurance Assigned Provider 05/17/2102/09 Jesus Alberto Reyes MD [address] [address] Nephrology 05/02/24 documented as of this encounter Additional Source Comments The information contained in this document represents components of the legal health record. It is not the complete legal health record.[facility]
--- OUTSIDE RECORDS SUMMARY | 2025-02-20 10:48 | XMS_ITS | Encounter Summary ---
Author Organization [facility] Address [address] [facility] [address] [place] [address] Phone Care Team Providers Care Loan Interviewer Name Role Phone Gilbert Reynoso DO Primary Care Provider [phone] Bigda, Gilbert Meade DO Unavailable Bigda, Gilbert Meade DO Unavailable Jesus Alberto Reyes MD Unavailable Reason for Referral * Outpatient Procedure - Closed Specialty Diagnoses / Procedures Referred By Helena perales Referred To Contact Diagnoses Cardiac murmur Procedures Adult Echo TTE Ninoska Foster CNP Phone: tel: fax: [email or web address] Referral ID Status Reason Start Date Expiration Date Visits Re quested Visits Authorized [id number] Closed 02/01/2018 04/02/2018 1 1 Encounter Details Date Type Department Care Team (Late st Contact Info) Description 01/31/2018 Ancillary Orders Virtual Department 30 [place] [address] Ninoska Foster CNP [address] [place] [phone] [email or web address] Cardiac murmur Social History Tobacco Use Types [...] st Contact Info) Description 01/24/2025 Procedure Pass [address] [address] 09/30/2025 8:45 AM EDT Appointment [address] [address] Gilbert Reynoso, 179 [facility] [place] [address] documented as of this encounter Results * [...] prior studies for comparison. us Ninoska Foster CONSERVATION COORDINATOR CV ECHO ORDERABLES Final Re sult documented in this encounter Visit Diagnoses Diagnosis Cardiac murmur Undiagnosed cardiac murmurs Cardiac murmur Undiagnosed cardiac murmurs documented in this encounter Care Teams Loan Interviewer Relationship Specialty Start Date End Date Gilbert Reynoso DO PCP - General 01/25/17 Gilbert Reynoso DO 179 [place] [address] Insurance Assigned Provider 08/15/1903/11 Gilbert Reynoso DO 179 [place] [address] Insurance Assigned Provider 05/17/2102/09 Jesus Alberto Reyes MD [address] [address] Nephrology 05/02/24 documented as of this encounter Additional Source Comments The information contained in this document represents components of the legal health record. It is not the complete legal health record.[facility]
--- OUTSIDE RECORDS SUMMARY | 2025-02-20 10:48 | XMS_ITS | Encounter Summary ---
Author Organization [facility] Address [address] [facility] [address] [place] [address] Phone Care Team Providers Care Cue Selector Name Role Phone Gilbert Reynoso DO Primary Care Provider [phone] Gilbert Reynoso DO Unavailable Gilbert Reynoso DO Unavailable Jesus Alberto Reyes MD Unavailable Encounter Details Date Type Department Care Team (Late st Contact Info) Description 01/29/2017 Ancillary Orders [address] [address] Gilbert Reynoso DO 179 [facility] [place] [address] [email or web address] Visit for screening mammogram [...] st Contact Info) Description 01/24/2025 Procedure Pass [address] [address] 09/30/2025 8:45 AM EDT Appointment [facility], [facility]- [facility] [address] [place] [address] Gilbert Reynoso, 179 [facility] [place] [address] [email or web address] documented as of this encounter Results * [...] lowers the sensitivity of mammography. POS - [id number] Narrative 02/23/2017 5:09 PM EST Bilateral mammography [...] whichlowers the sensitivity of mammography. POS - [id number] us Gilbert Reynoso DO IMG MG EXAMS Final Result documented in this encounter Visit Diagnoses Diagnosis Visit for screening mammogram Visit for screening mammogram documented in this encounter Care Teams Cue Selector Relationship Specialty Start Date End Date Gilbert Reynoso PCP - General 01/25/17 DeniseGilbert camejoDO 179 [facility] [place] [address] Insurance Assigned Provider 08/15/1903/11 DeniseGilbert camejoDO 179 [facility] [place] [address] Insurance Assigned Provider 05/17/2102/09 Jesus Alberto Reyes MD [address] [address] Nephrology 05/02/24 documented as of this encounter Additional Source Comments The information contained in this document represents components of the legal health record. It is not the complete legal health record.[facility]
--- OUTSIDE RECORDS SUMMARY | 2025-02-20 10:48 | XMS_ITS | Encounter Summary ---
Author Organization [facility], Address [address] [place] [address] Phone Care Team Providers Care Lath Hand Name Role Phone Gilbert Reynoso DO Primary Care Provider [phone] Encounter Details Date Type Department Care Team (Late st Contact Info) Description 06/24/2023 Documentation Only [facility] [address] [place] [address] Yolette Santacruz [address] [place] [phone] Social History Tobacco Use Types Packs/Day [...] Visit [facility] [address] Pat BALL [address] [place] [phone] Jesus Alberto Reyes MD [address] [facility] [place] [address] documented as of this encounter Visit Diagnoses Not on filedocumented in this encounter Care Teams Lath Hand Relationship Specialty Start Date End Date Gilbert Reynoso DO [address] [place] [phone] PCP - General Internal Medicine 06/13/19 documented as of this encounter
--- OUTSIDE RECORDS SUMMARY | 2025-02-20 10:48 | XMS_ITS | Encounter Summary ---
Author Organization [facility] Address [address] [facility] [address] [place] [address] Phone Care Team Providers Care Satellite Dish Technician Name Role Phone Gilbert Reynoso DO Primary Care Provider [phone] Gilbert Reynoso DO Unavailable Gilbert Reynoso DO Unavailable Jesus Alberto Reyes MD Unavailable Encounter Details Date Type Department Care Team (Late st Contact Info) Description 01/29/2017 Ancillary Orders [facility], [address] [address] Gilbert Reynoso DO [address] [facility] [place] [address] [place] [address] [email or web address] Postmenopausal Social History Tobacco Use Types Packs/Day [...] st Contact Info) Description 01/24/2025 Procedure Pass [facility], Mammography- [address] [address] 09/30/2025 8:45 AM EDT Appointment [facility], [facility] [address] [place] [address] Gilbert Reynoso, [address] [facility] [place] [address] [email or web address] documented as of this encounter Results * BD DXA AXIAL (SPINE) WITH HIP (02/23/2017 9:46 AM EST) Anatomical Region Laterality Modality Bone Density Bone Density 02/23/2017 9:50 AM EST Impressions 02/23/2017 9:52 AM EST Overall normal bone mineral density with interval decrease in the lumbar spine and hips since 2008. POS - [id number] Narrative 02/23/2017 9:52 AM EST This is [...] the right hip was calculated at 0.839 gm/dl3lqev a T-score of -0.8 and Z-score of 0.2 falling within the WHOclassification of normal, representing an interval decline of 8.9% [id number]. Total bone mineral density in the left hip was calculated at 0.901gm/cm2 with a T-score of 0.3 and Z-score of 0.7 falling within the WHOclassification of normal, representing a 10.3% decline since 2008. IMPRESSION: Overall normal bone mineral density with interval decrease in the lumbarspine and hips since 2008. POS - [id number] Gilbert Reynoso DO IMG BD BONE DENSITY DEXA Final R esult documented in this encounter Visit Diagnoses Diagnosis Postmenopausal Asymptomatic postmenopausal status (age-related) (natural) Postmenopausal Asymptomatic postmenopausal status (age-related) (natural) documented in this encounter Care Teams Satellite Dish Technician Relationship Specialty Start Date End Date Gilbert Reynoso DO PCP - General 01/25/17 Gilbert Reynoso DO [address] [place] [address] Insurance Assigned Provider 08/15/1903/11 Gilbert Reynoso DO [address] [place] [address] [email or web address] Insurance Assigned Provider 05/17/2102/09 Jesus Alberto Reyes MD [address] [place] [address] [email or web address] Nephrology 05/02/24 documented as of this encounter Additional Source Comments The information contained in this document represents components of the legal health record. It is not the complete legal health record.[facility]
--- OUTSIDE RECORDS SUMMARY | 2025-02-20 10:48 | XMS_ITS | Encounter Summary ---
Author Organization [facility] [place], Address [address] [place] [address] Phone Care Team Providers Care Dormitory Maid Name Role Phone Gilbert Reynoso DO Primary Care Provider Encounter Details Date Type Department Care Team (Late st Contact Info) Description 06/24/2023 Documentation Only [facility] [address] [place] [address] Yolette Santacruz [address] [place] [phone] Social History Tobacco Use Types Packs/Day [...] [facility] [address] Pat BALL [address] [place] [phone] Jesus Alberto Reyes MD [address] [facility] [place] [address] documented as of this encounter Visit Diagnoses Not on filedocumented in this encounter Care Teams Dormitory Maid Relationship Specialty Start Date End Date Gilbert Reynoso DO 6 [place] [phone] PCP - General Internal Medicine 06/13/19 documented as of this encounter
--- OUTSIDE RECORDS SUMMARY | 2025-02-20 10:48 | XMS_ITS | Clinical Summary ---
Author Organization [facility] Address [address] [facility] [address] [place] [address] Phone Care Team Providers Care Reacher Name Role Phone Selina Escobar DO Primary Care Provider [phone] Jesus Alberto Reyes MD Unavailable Allergies Active Allergy Reactions Criticality Noted Date Comments Atenolol 06/29/2021 Lisinopril 06/29/2021 Dcgwjdh-Hzv-Fif Reductase Inhibitors Other (See Comments) 06/22/2019 Sulfa (Sulfonamide Antibiotics) 04/12 Medications amLODIPine (NORVASC) 5 MG tablet Take 5 mg by mouth daily. Active cholecalciferol (VITAMIN D3) 2,000 unit capsule Take 2,000 Units by mouth daily. Active famotidine (PEPCID) 40 MG tablet Take 40 mg by mouth daily. Active losartan (COZAAR) 50 MG tablet Take 50 mg by mouth 2 (two) times a day. Active LORazepam (ATIVAN) 0.5 MG tablet Take 0.5 mg by mouth. Active rosuvastatin (CRESTOR) 5 MG tablet Take 5 mg by mouth daily. Active Encounters Date Type Department Care Team Description 01/24/2025 Transcribe Orders Virtual Department [address] [place] [address] Selina Escobar DO Breast screening (Primary Dx) from Last 3 Months Family History Medical History Relation Comments Breast cancer Neg Hx Social History Tobacco Use Types Packs/Day Years Used Date Smoking Tobacco: Never Smokeless Tobacco: Never Tobacco Cessation:Counseling Given: Not Answered Alcohol Use Standard Drinks/Week Comments Not Currently [...] or Rodriguez 08/20/2021 9: 53 PM EDT Last Filed Vital Signs Vital Sign Reading Time Taken Comments Blood Pressure 106/55 05/08/2024 11:10 AM EST Pulse 68 05/08/2024 11:10 AM EST Temperature 36.3 C (97.4 F) 05/08/2024 11:01 AM EST Respiratory Rate 17 05/08/2024 11:10 AM EST Oxygen Saturation 97% 05/08/2024 11:10 AM EST Inhaled Oxygen Concentration - - Weight 65.8 kg (145 lb) 05/02/2024 10:21 AM EST Height 156.2 cm (5' 1.5 ) 05/02/2024 10:21 AM ES T Body Mass Index 26.95 05/02/2024 10:21 AM EST Plan of Treatment Upcoming Encounters Date Type Department Care Team (Late st Contact Info) Description 01/24/2025 Procedure Pass [address] [address] 09/30/2025 8:45 AM EDT Appointment [address] [address] Selina Escobar DO [address] [place] [address] Health Maintenance Due Date Last Done Comments BLOOD PRESSURE 1955 DEPRESSION SCREENING 1967 HEPATITIS C SCREENING 12/18/1973 COLOGUARD 12/18/2000 FIT TEST 12/18/2000 FOBT 12/18/2000 SIGMOIDOSCOPY 12/18/2000 VIRTUAL COLONOSCOPY 12/18/2000 ZOSTER VACCINES (1 of 2) 12/18/2005 INFLUENZA VACCINE (#1) 2024 COVID-19 VACCINE ( season) 2024 02/26/2021, 07/24/2020, 06/26/2020 CREATININE LEVEL 06/14/2025 06/14/2024, 03/2024, 06/23/2023, Additional history exists POTASSIUM LEVEL 06/14/2025 06/14/2024, 12/10, 06/23/2023, Additional history exists MAMMOGRAM 08/13/2026 08/13/2024, 02/0 10/2023, 03/24/2022, Additional history exists SCREENING FOR DIABETES 06/15/2027 06/14/2024, 2023 LIPID PANEL 12/21/2028 12/22/2023, 07/2 11/2020, 11/05/2020 RSV VACCINE (1 - 1-dose 75+ series) 12/18/2030 Adult Td,Tdap Booster 03/12/2032 03/12/2022 COLONOSCOPY 05/08/2034 05/08/2024 COLORECTAL CANCER SCREENING 05/08/2034 OSTEOPOROSIS SCREENING INITIAL (ONE-TIME) Completed 02/23/2017 PNEUMOCOCCAL VACCINES (50+ years) Completed 03/12/2022 SMOKING STATUS SCREENING (Once After 26 Yrs) Completed 05/08/2024 HEPATITIS A VACCINES Aged Out No long er eligible based on patient's age to complete this topic HIB VACCINES Aged Out No longer eligi ble based on patient's age to complete this topic IPV VACCINES Aged Out No longer eligi ble based on patient's age to complete this topic MENINGOCOCCAL VACCINES (ACWY) Aged Out No longer eligible based on patient's age to complete this topic MENINGOCOCCAL VACCINES (B) Aged Out N o longer eligible based on patient's age to complete this topic Medical Devices Not on file Procedures Procedure Name Priority Date/Time Associated Diagnosis Comments BI MAMMOGRAM SCREENING WITH TOMOSYNTHESIS WITH CAD (BILATERAL) Routine 08/13/2024 8:52 AM EDT Breast screening RENAL PANEL Routine 06/14/2024 9:32 AM EST Stage 3a chronic kidney disease Essential (primary) hypertension Routine general medical examination at a health care facility ENDOSCOPY, COLON 05/08/2024 10:3 6 AM EST LIPID PANEL Routine 12/22/2023 9:55 AM EDT Routine general medical examination at a health care facility BD DXA AXIAL (SPINE) WITH HIP Routine 02/23/2017 9:46 AM EST Postmenopausal from Last 3 Months or Most Recently Relevant to Health Maintenance Results * BI MAMMOGRAM SCREENING WITH TOMOSYNTHESIS WITH CAD (BILATERAL) (08/13/2024 8:52 AM EDT) Anatomical Region Laterality Modality Breast Left, Breast Right, Breast Bilateral Bila teral Mammography 08/14/2024 9:01 AM EDT Impressions 08/14/2024 9:02 AM EDT No mammographic evidence of malignancy in either breast. Annual screening mammography is recommended. BI-RADS 1 NEGATIVE The patient will be notified of the results and recommendations. Narrative 08/14/2024 9:02 AM EDT BI MAMMOGRAM SCREENING WITH TOMOSYNTHESIS WITH CAD (BILATERAL) Additional patient information: Screening. COMPARISON: Comparison is made with relevant prior imaging. Breast composition: The breasts are heterogeneously dense, which may obscure small masses. FINDINGS: There has been no change in the mammographic findings since previous examination. No abnormal masses, suspicious calcifications, or other significant findings are identified mammographically in either breast. Procedure Note Chantal Rodriguez MD - 08/14/2024 BI MAMMOGRAM SCREENING WITH TOMOSYNTHESIS WITH CAD (BILATERAL) Additional patient information: Screening. COMPARISON: Comparison is made with relevant prior imaging. Breast composition: The breasts are heterogeneously dense, which mayobscure small masses. FINDINGS: There has been no change in the mammographic findings since previousexamination. No abnormal masses, suspicious calcifications, or other significantfindings are identified mammographically in either breast. IMPRESSION: No mammographic evidence of malignancy in either breast. Annual screening mammography is recommended. BI-RADS 1 NEGATIVE The patient will be notified of the results and recommendations. us Selina A Bigda DO IMG MG EXAMS Final Result * (ABNORMAL) Renal panel (06/14/2024 9:32 AM EST) SODIUM 138 133 - 146 mmol/L [facility] POTASSIUM 4.5 3.3 - 5.1 mmol/L [facility] CHLORIDE 101 96 - 108 mmol/L [facility] CO2 26 21 - 35 mmol/L [facility] GLUCOSE 99 70 - 99 mg/dL [facility] BUN 18 6 - 19 mg/dL [facility] CREATININE 1.20 0.5 - 1.5 mg/dL [facility] CALCIUM 9.4 8.4 - 10.3 mg/dL [facility] PHOSPHORUS 3.8 2.7 - 4.5 mg/dL [facility] ALBUMIN 4.2 3.9 - 4.8 g/dL [facility] EGFR 49(L) >59 mL/min/1.7 3m2 [facility] Comment:Estimated glomerular filtration rate calculated using the CKD-EPI refit equation. ANION GAP 16 10 - 20 mmol/L [facility] Blood 06/14/2024 9:32 AM EST 06/14/2024 9:35 AM EST us Jesus Alberto Reyes MD LAB BLOOD BKR ORDERABLES Final R esult [facility] [address] [place] [address] * ENDOSCOPY, COLON (05/08/2024 10:36 AM EST) Narrative Transcriptions Juanpablo Duenas MD - 05/08/2024 10:36 AM EST [facility] Patient Name: Harmony Nguyen Attending MD:: JUANPABLO DUENAS MD, , Procedure Date: 05/08/2024 10:36 AM Date of : 1955 Age: 68 Admit Type: Outpatient Gender: Female Room: [place] [address] Referring MD: SELINA ESCOBAR DO Exam Type: Colonoscopy Indications: Screening for colorectal malignant neoplasm Medications: Monitored Anesthesia Care Procedure: Informed consent was obtained from the patientafter discussion of the indications, limitations, alternatives, benefits, and risks of the procedure. Risks specifically discussed include but are not limited to medication reactions, missed lesions, bleeding, perforation, or the need for emergent surgery. Throughout the procedure, the patient's blood pressure, pulse, end-tidal CO2, and oxygensaturations were monitored continuously. The Colonoscope was introduced through the anus and advanced to the cecum, identified by appendiceal orifice and ileocecal valve. The colonoscopy was performed without difficulty. The patient tolerated the procedure well. The quality of the bowel preparation was excellent. The quality of the bowel preparation was evaluated using the BBPS (BostonBowel Preparation Scale) with scores of: Right Colon = 3, Transverse Colon = 3 and Left Colon = 3 (entiremucosa seen well with no residual staining, smallfragments of stool or opaque liquid). The total BBPS score equals 9. Anatomical landmarks were photographed. Complications: No immediate complications. Estimated blood loss:None. Findings: The perianal and digital rectal examinations were normal. The colon (entire examined portion) appearednormal. Impression: - The entire examined colon is normal. - No specimens collected. Recommendation: - Discharge patient to home. - Repeat colonoscopy in 10 years for screening purposes - re-assess at that time given patientage; would also be with propofol given tortuous colon. JUANPABLO DUENAS MD, 05/08/2024 10:58:21 AM This report has been signed electronically. Number of Addenda: 0 Note Initiated On: 05/08/2024 10:36 AM Procedure Code(s): --- Professional --- 84311, Colonoscopy, flexible; diagnostic, including collection of specimen(s) by brushing or washing, when performed (separateprocedure) --- Technical --- 78139, Colonoscopy, flexible; diagnostic, including collection of specimen(s) by brushing or washing, when performed (separateprocedure) Diagnosis Code(s): --- Professional --- Z12.11, Encounter for screening for malignantneoplasm of colon --- Technical --- Z12.11, Encounter for screening for malignantneoplasm of colon CPT copyright 2021 [employer]. All rights reserved. The codes documented in this report are preliminary and upon automated teller manager reviewmay be revised to meet current compliance requirements. Procedure Date: 05/08/2024 10:36:[address] [place] [address] us Selina A Bigda DO GI PROCEDURE ORDERABLES Final Re sult * (ABNORMAL) Lipid panel (12/22/2023 9:55 AM EDT) HDL 45 mg/dL [facility] Comment: Interpretation <40 mg/dL: Low HDL cholesterol (major risk factor for CHD) Greater than or equal to 60 mg/dL: High HDL cholesterol ( negative risk factor for CHD) HDL - cholesterol is affected by a number of factors, e.g. smoking, excerise, hormones, sex and age. CHOLESTEROL 167 0 - 240 mg/dL [facility] TRIGLYCERIDES 167(H) 30 - 160 mg/dL [facility] LDL 89 50 - 129 mg/dL [facility] Comment: LDL levels in terms of risk for coronary heart disease: <100 mg/dL: Optimal 100-129 mg/dL: Near or above optimal 130-159 mg/dL: Borderline high 160-189 mg/dL: High >190 mg/dL: Very High CARDIAC RISK RATIO 3.7 3.3 - 4.4 [facility] Blood 12/22/2023 9:55 AM EDT 12/22/2023 9:58 AM EDT us Abbie GOULD LAB BLOOD BKR ORDERABLES Fi nal Result Performing Organization Address City/State/[facility] Co de Phone Number [address] [address] * BD DXA AXIAL (SPINE) WITH HIP (02/23/2017 9:46 AM EST) Anatomical Region Laterality Modality Bone Density Bone Density 02/23/2017 9:50 AM EST Impressions 02/23/2017 9:52 AM EST Overall normal bone mineral density with interval decrease in the lumbar spine and hips since 2008. POS - [id number] Narrative 02/23/2017 9:52 AM EST This is [...] the right hip was calculated at 0.839 gm/wr3tnzb a T-score of -0.8 and Z-score of 0.2 falling within the WHOclassification of normal, representing an interval decline of 8.9% [id number]. Total bone mineral density in the left hip was calculated at 0.901gm/cm2 with a T-score of 0.3 and Z-score of 0.7 falling within the WHOclassification of normal, representing a 10.3% decline since 2008. IMPRESSION: Overall normal bone mineral density with interval decrease in the lumbarspine and hips since 2008. POS - [id number] us Selina A Bigda DO IMG BD BONE DENSITY DEXA Final R esult from Last 3 Months or Most Recently Relevant to Health Maintenance Insurance MEDICARE PART A & B [facility] MEDICARE ENHANCE SUPPLEMENT MEDICARE PART A & B [facility] MEDICARE ENHANCE SUPPLEMENT MEDICARE PART A & B [facility] MEDIC[facility] ENHANCE SUPPLEMENT MEDICARE PART A & B [facility] MEDICARE ENHANCE SUPPLEMENT MEDICARE PART A & B [facility] MEDICARE ENHANCE SUPPLEMENT MEDICARE PART A & B Member Subscriber Plan / Payer ( fective 2020-) Name:Harmony Nguyen Member ID:[id number] Relation to Subscriber:Self Name:Harmony Nguyen Subscriber ID:[id number] Payer ID:[id number] Group ID:Not on file Type:Medicare Address: [address] [place] [phone] [facility] MEDICARE ENHANCE SUPPLEMENT MEDICARE PART A & B [facility] MEDICARE ENHANCE SUPPLEMENT MEDICARE PART A & B [facility] MEDICARE ENHANCE SUPPLEMENT MEDICARE PART A & B [facility] MEDICARE ENHANCE SUPPLEMENT Care Teams Reacher Relationship Specialty Start Date End Date Selina Escobar DO [email or web address] PCP - General 01/25/17 Jesus Alberto Reyes MD [address] [place] [email or web address] Nephrology 05/02/24 Additional Source Comments The information contained in this document represents components of the legal health record. It is not the complete legal health record.[facility]
--- OUTSIDE RECORDS SUMMARY | 2025-02-20 10:48 | XMS_ITS | Encounter Summary ---
Author Organization [facility] Address [address] [facility] [address] [place] [address] Phone Care Team Providers Care Veterinary Radiologist Name Role Phone Gilbert Reynoso DO Primary Care Provider [phone] Gilbert Reynoso DO Unavailable Gilbert Reynoso DO Unavailable Jesus Alberto Reyes MD Unavailable Reason for Referral * Physical Therapy (Routine) - Closed Specialty Diagnoses / Procedures Referred By Helena perales Referred To Contact Physical Therapy Diagnoses Encounter for rehabilitation Rosemarie Oneil PA-C Phone: tel: fax: [email or web address] [facility] [address] [place] [address] Phone: tel: Referral ID Status Reason Start Date Expiration Date Visits Re quested Visits Authorized [id number] Closed 10/19/2018 10/09/2019 17 17 Encounter Details Date Type Department Care Team (Late st Contact Info) Description 10/03/2018 Transcribe Orders [facility] [address] [place] [id number] Gilbert Reynoso DO [address] [place] [address] Encounter for rehabilitation (Primary Dx) Social History [...] Contact Info) Description 01/24/2025 Procedure Pass [address] [address] 09/30/2025 8:45 AM EDT Appointment [address] [address] Gilbert Reynoso DO [address] [place] [address] Scheduled Referrals Name Type Priority Associated Diagnoses Orde r Schedule Ambulatory referral to [facility] Physical Therapy Outpatient Referral Routine Encounter for rehabilitation Ordered: 10/03/2018 documented as of this encounter Visit Diagnoses Diagnosis Encounter for rehabilitation- Primary documented in this encounter Care Teams Veterinary Radiologist Relationship Specialty Start Date End Date Gilbert Reynoso DO PCP - General 01/25/17 Gilbert Reynoso DO [address] [place] [address] Insurance Assigned Provider 08/15/1903/11 Gilbert Reynoso DO [address] [place] [address] Insurance Assigned Provider 05/17/2102/09 Jesus Alberto Reyes MD [address] [address] [email or web address] Nephrology 05/02/24 documented as of this encounter Additional Source Comments The information contained in this document represents components of the legal health record. It is not the complete legal health record.[facility]
--- OUTSIDE RECORDS SUMMARY | 2025-02-20 10:48 | XMS_ITS | Encounter Summary ---
Author Organization [facility] [place], Address [address] [place] [address] Phone Care Team Providers Care Director Of Customer Acquisition Name Role Phone Gilbert Reynoso DO Primary Care Provider [phone] Encounter Details Date Type Department Care Team (Late st Contact Info) Description 06/11/2024 Documentation Only [facility] [address] [place] [address] Izabel Brown [address] [place] [phone] Social History Tobacco Use Types Packs/Day [...] Visit [facility] [address] Pat BALL [address] [place] [phone] Jesus Alberto Reyes MD [address] [facility] [place] [address] documented as of this encounter Visit Diagnoses Not on filedocumented in this encounter Care Teams Director Of Customer Acquisition Relationship Specialty Start Date End Date Gilbert Reynoso DO [address] [place] [address] PCP - General Internal Medicine 06/13/19 documented as of this encounter
--- OUTSIDE RECORDS SUMMARY | 2025-02-20 10:48 | XMS_ITS | Encounter Summary ---
Author Organization [facility] [place], Address [address] [place] [address] Phone Care Team Providers Care Drawing Machine Operator Name Role Phone Gilbert Reynoso DO Primary Care Provider [phone] Encounter Details Date Type Department Care Team (Late Contact Info) Description 01/04/2020 Orders Only [facility] [place] [facility] [address] [facility] [address] [place] [phone] Melissa Keller MD Chronic kidney disease stage [...] Visit [facility] [address] [place] [phone] Jesus Alberto Reyes MD [address] [facility] [place] [phone] documented as of this encounter Visit Diagnoses Diagnosis Chronic kidney disease stage 3 (HCC) documented in this encounter Care Teams Drawing Machine Operator Relationship Specialty Start Date End Date Gilbert Reynoso DO [address] [address] PCP - General Internal Medicine 06/13/19 documented as of this encounter
--- OUTSIDE RECORDS SUMMARY | 2025-02-20 10:48 | XMS_ITS | Encounter Summary ---
Author Organization [facility], Address [address] [place] [address] Phone Care Team Providers Care Sanitation Worker [employer] Name Role Phone Gilbert Reynoso DO Primary Care Provider [phone] Encounter Details Date Type Department Care Team (Late st Contact Info) Description 06/21/2022 Documentation Only [facility] [address] [place] [address] Melissa Keller MD Social History [...] Visit [facility] [address] [place] [id number] Jesus Alberto Reyes MD [address] [place] [address] [place] [id number] documented as of this encounter Visit Diagnoses Not on filedocumented in this encounter Care Teams Sanitation Worker [employer]aning [employer] Relationship Specialty Start Date End Date Gilbert Reynoso DO [address] [facility] [place] [address] PCP - General Internal Medicine 06/13/19 documented as of this encounter
== END 2025-02-20 09:35 | disposition home or self-care (01) ==
LOC: HO.HMGAL 09:34
PROVIDERS: PCP Internal Medicine; Visit Provider Registered Nurse Emergency
DX: J30.89 Other allergic rhinitis (principal)
CPT/HCPCS: 95117; 95165

== ENCOUNTER 2025-03-20 09:53 | Outpatient (AMB) | payer MEDICARE, OTHER, SELFPAY | END 2025-03-20 09:53 | disposition home or self-care (01) | LOC: HO.HMGAL 09:53 | PROVIDERS: PCP Internal Medicine; Visit Provider Registered Nurse Emergency | DX: J30.89 Other allergic rhinitis (principal) | CPT/HCPCS: 95117; 95165 ==